=== PATIENT | male | born 1970 | race African-American/Black ===

== ENCOUNTER 2020-03-06 19:50 | Inpatient (IN) | payer BC ==
[2020-03-06 20:20] LABS: Absolute Lymphocytes (CBC) 1.5 K/uL (0.7-4.9); Hematocrit 42.9 % (39.6-49.0); Lymphocytes % 19.8 % (15.3-44.8); MPV 10.1 fL (7.6-11.3); RBC Red Blood Cell Count 4.92 M/uL (4.33-5.43)
[2020-03-06 20:23] LABS: Protime INR 1.06
--- NOTE | 2020-03-06 20:27 | RAD REPORT ---
EXAM DESCRIPTION: CT - Ct Stroke Brain Wo Cont - 03/06/2020 8:12 pm CLINICAL HISTORY: Slurred speech. Right-sided weakness COMPARISON: 2012 TECHNIQUE: Computed axial tomography of the head was obtained. All CT scans are performed using dose optimization technique as appropriate and may include automated exposure control or mA/KV adjustment according to patient size. FINDINGS: An intracranial bleed is not seen . The ventricles are normal in caliber. No extra-axial fluid collection is noted. 12 millimeters low-density area has developed within the left thalamus. Mild low-density areas within periventricular, deep and subcortical white matter likely ischemic longoria ges secondary to small vessel disease Fluid within the sinuses/ mastoids is not seen. IMPRESSION: 12 millimeter low-density area within the left thalamus consistent with an infarct. It i s more likely to be acute then chronic. Rickey of the emergency room was notified at 8:11 p.m. March 06, 2020
--- NOTE | 2020-03-06 20:29 | RAD REPORT ---
EXAM DESCRIPTION: Sam Single View03/06/2020 8:19 pm CLINICAL HISTORY: CVA COMPARISON: 2012 FINDINGS: The lungs appear clear of acute infiltrate. The heart is borderline enlarged IMPRESSION: No acute abnormalities displayed
[2020-03-06] MEDS ORDERED: ASPIRIN 81 MG CHEWABLE TABLET ONE (20:30)
[2020-03-06] MEDS ORDERED: CLOPIDOGREL 75 MG TABLET ONE (20:30)
[2020-03-06] MEDS ORDERED: FOLIC ACID 5 MG/ML VIAL ONE (20:31)
[2020-03-06] MEDS ORDERED: LABETALOL 20 MG/4ML SYRINGE IV ONE (20:39)
[2020-03-06] MEDS ORDERED: KCL 20 MEQ/100 mL IVPB 20 MEQ/100 ML BAG IV ONE (20:54)
[2020-03-06] MEDS ORDERED: NA CHLORIDE 0.9% 250 ML ONE (20:54)
--- NOTE | 2020-03-06 20:56 | ER ---
Nurse's Notes [facility] Name: Oliverio Masterson Age: 49 yrs Sex: Male : 1970 Arrival Date: 03/06/2020 Time: 19:52 Bed 6 Private MD: Diagnosis: Cerebral infarction;Weakness;Slurred speech Presentation: 03/06 20:04 Chief complaint: Spouse and/or significant other states: I WAS TALKING TO HIM ON THE rv PHONE AT 6AM AND HE SOUNDED DIFFERENT. HE WAS ALSO LEANING ON HIS RIGHT SIDE WITH BLURRING ON VISION ON THE RIGHT EYE. Coronavirus screen: Client denies travel out of the [place] in the last 14 days. Ebola Screen: No symptoms or risks identified at this time. An acute neurological deficit is present. The charge nurse has been notified. The patient has been moved to a treatment area. Initial Sepsis Screen: Does the patient meet any 2 criteria? No. Patient's initial sepsis screen is negative. Does the patient have a suspected source of infection? No. Patient's initial sepsis screen is negative. Risk Assessment: Do you want to hurt yourself or someone else? Patient reports no desire to harm self or others. Onset of symptoms was March 06, 2020 at 06:00. 20:04 Method Of Arrival: Wheelchair rv 20:04 Acuity: MURPHY 2 rv Triage Assessment: 20:11 The onset of the patients symptoms was March 06, 2020 at 06:00. rv 20:15 General: Appears comfortable. Neuro: Reports blurred vision numbness weakness. rv Stroke Activation: Symptom onset > 6 hours Physician: Stroke Attending; Name: ; Notified At: ; Arrived At: Physician: Chief Stroke Resident; Name: ; Notified At: ; Arrived At: Physician: Stroke Resident; Name: ; Notified At: ; Arrived At: Physician: ED Attending; Name: ; Notified At: ; Arrived At: Physician: ED Resident; Name: ; Notified At: ; Arrived At: Historical: - Allergies: 20:08 No Known Allergies; rv - PMHx: 20:08 Hypertension; High Cholesterol; rv - PSHx: 20:08 Hernia repair; rv - Immunization history:: Adult Immunizations up to date. - Social history:: Smoking status: Patient/guardian denies using tobacco, the patient reports quitting approximately 10 years ago. - Family history:: not pertinent. - Hospitalizations: : No recent hospitalization is reported. Screenin:10 Abuse screen: Denies threats or abuse. Denies injuries from another. Nutritional rv screening: No deficits noted. Tuberculosis screening: No symptoms or risk factors identified. Fall Risk None identified. Assessment: 20:10 The patient has not been NPO before screening. The patient is alert, and able to follow rv commands. The patient exhibits slurred or garbled speech. The patient is exhibiting difficulty speaking. The patient is exhibiting difficulty understanding words. The patient is able to swallow own secretions with no drooling or need for suction. Patient tolerated one teaspoon of water. No drooling, immediate coughing, gurgling, or clearing of the throat was noted. The patient tolerated 90mL of water. No drooling, immediate coughing, gurgling, or clearing of the throat was noted. The patient passed the bedside swallow screening. Oral medications may be given as ordered. Contact Physician for further diet orders. Provider notified of bedside swallow screening results: Jv Varghese MD. 20:10 VAN Scoring:. T-PA (Activase) Screening: Contraindications:. rv 20:35 General: Appears comfortable, Behavior is calm, cooperative. Pain: Denies pain. Neuro: rv Level of Consciousness is awake, alert, obeys commands, Oriented to person, place, time, situation. Cardiovascular: Rhythm is sinus rhythm. Respiratory: Airway is patent Respiratory effort is even, unlabored, Breath sounds are clear bilaterally. Derm: Skin is intact. 21:12 Reassessment: PATIENT COMPLAINED OF NAUSEA AND VOMITING AFTER THE CT SCAN. REFERRED TO rv DR VARGHESE. NEW ORDERS RECEIVED. GIVEN MEDS ORDERED. PATIENT AND FAMILY UPDATED BY DR VARGHESE AT BEDSIDE REGARDING PLAN OF CARE. PT FOR CT ANGIO. AWAITING DISPOSITION FOR TRANSFER OR ADMISSION. Vital Signs: 20:11 BP 184 / 123; Pulse 77; Resp 18; Temp 98.1; Pulse Ox 97% on R/A; Weight 108.86 kg; rv 20:26 Temp 97.9; ar5 20:36 BP 164 / 143; Pulse 62; Resp 18; Pulse Ox 97% on R/A; mg2 21:07 BP 171 / 110; Pulse 69; Resp 16; Pulse Ox 97% on R/A; rv 22:00 BP 170 / 113; Pulse 66; Resp 15; Pulse Ox 97% on R/A; rv 22:20 BP 167 / 109; Pulse 62; Resp 16; Pulse Ox 96% on R/A; rv Tonio Coma Score: 21:00 Eye Response: spontaneous(4). Verbal Response: oriented(5). Motor Response: obeys rv commands(6). Total: 15. 22:00 Eye Response: spontaneous(4). Verbal Response: oriented(5). Motor Response: obeys rv commands(6). Total: 15. NIH Stroke Scale Scores: 20:10 NIHSS Score: 5 rn 20:35 NIHSS Score: 6 rv ED Course: 19:52 Patient arrived in ED. mr 19:54 Jv Varghese MD is Attending Physician. rn 20:03 Jared Sarah RN is Primary Nurse. rv 20:07 Triage completed. rv 20:08 Arm band placed on right wrist. Patient placed in the treatment room, on a stretcher, rv Patient notified of wait time. 20:10 Patient has correct armband on for positive identification. Placed in gown. Bed in low rv position. Call light in reach. Side rails up X2. vehicle monitor technician on. Pulse ox on. NIBP on. 20:12 Ct Stroke Brain Wo Cont In Process Unspecified. EDMS 20:19 Stroke CXR 1 View In Process Unspecified. EDMS 20:25 Inserted saline lock: 20 gauge in left antecubital area, using aseptic technique. Blood mg2 collected. by RUDDY Bergman. 20:29 Initiated transfer at [facility] with Kasia. Stated that she would work on the case. tt3 20:30 No provider procedures requiring assistance completed. mg2 20:53 CT Head Angio In Process Unspecified. EDMS 20:53 CT Neck Angio In Process Unspecified. EDMS 20:58 Kasia called back to connect their neurologist with Dr. Varghese. tt3 21:31 Transfer cancelled with Kasia at [facility]. tt3 21:56 Tee Bonilla is Hospitalizing Provider. rn 22:20 IV is patent, with fluids infusing freely, with good blood return, Patient admitted, IV rv remains in place. Administered Medications: 20:29 Drug: PlaVIX 75 mg Route: PO; mg2 21:05 Follow up: Response: No adverse reaction rv 20:29 Drug: Labetalol 5 mg Route: IVP; Site: left antecubital; mg2 22:13 Follow up: Response: Blood pressure is elevated rv 20:30 Drug: Aspirin Chewable Tablet 324 mg Route: PO; mg2 21:05 Follow up: Response: No adverse reaction rv 20:30 Drug: foLIC Acid 1 mg Route: IVPB; Site: left antecubital; mg2 21:05 Follow up: IV Status: Completed infusion rv 21:00 Drug: Zofran (Ondansetron) 4 mg Route: IVP; Site: left antecubital; rv 22:13 Follow up: Response: No adverse reaction rv 21:05 Drug: Potassium Chloride 10 mEq Route: IV; Rate: calculated rate; Site: left rv antecubital; 22:13 Follow up: IV Status: Completed infusion; IV Intake: 50ml rv Point of Care Testing: Blood Glucose: 20:15 Blood Glucose: 90 mg/dL; rv Ranges: Intake: 22:13 IV: 50ml; Total: 50ml. rv Outcome: 20:54 ER care complete, transfer ordered by MD. rn 21:57 Decision to Hospitalize by Provider. rn 22:19 Admitted to Med/surg accompanied by tech, room 206, Other SBAR, EKG Report called to rv RILEY RN 22:19 Condition: stable 22:19 Instructed on the need for admit. 22:43 Patient left the ED. rv NIH Stroke Scale - NIH Stroke Score Date: 03/06/2020 Time: 20:10 Total Score = 5 1a. Level of Consciousness (LOC) - 0(Alert) 1b. Level of Consciousness (LOC) (Year \T\ Age) - 0(Both) 1c. LOC Commands (Open \T\ Closes Eyes/Weight Recorder) - 0(Both) 2. Best Gaze (Lateral Gaze Paresis) - 0(Normal) 3. Visual Field Loss - 1(Partial hemianopia) 4. Facial Palsy - 1(Minor Paralysis) 5a. Left Arm: Motor (10-second hold) - 0(No drift) 5b. Right Arm: Motor (10-second hold) - 1(Drift) 6a. Left Leg: Motor (5-second hold - always test supine) - 0(No drift) 6b. Right Leg: Motor (5-second hold - always test supine) - 1(Drift) 7. Limb Ataxia (finger/nose \T\ heel/jeronimo - test with eyes open) - 0(Absent) 8. Sensory Loss (pinprick arms/legs/face) - 0(Normal) 9. Best Language: Aphasia (description/naming/reading) - 0(No aphasia) 10. Dysarthria (speech clarity - read or repeat words) - 1(Mild to Moderate) 11. Extinction and Inattention (visual/tactile/auditory/spatial/personal) - 0(No abnormality) Initials: ruddy NIH Stroke Scale - NIH Stroke Score Date: 03/06/2020 Time: 20:35 Total Score = 6 1a. Level of Consciousness (LOC) - 0(Alert) 1b. Level of Consciousness (LOC) (Year \T\ Age) - 0(Both) 1c. LOC Commands (Open \T\ Closes Eyes/Weight Recorder) - 0(Both) 2. Best Gaze (Lateral Gaze Paresis) - 1(Partial gaze palsy) 3. Visual Field Loss - 1(Partial hemianopia) 4. Facial Palsy - 1(Minor Paralysis) 5a. Left Arm: Motor (10-second hold) - 0(No drift) 5b. Right Arm: Motor (10-second hold) - 0(No drift) 6a. Left Leg: Motor (5-second hold - always test supine) - 0(No drift) 6b. Right Leg: Motor (5-second hold - always test supine) - 0(No drift) 7. Limb Ataxia (finger/nose \T\ heel/jeronimo - test with eyes open) - 1(Present in one limb) 8. Sensory Loss (pinprick arms/legs/face) - 0(Normal) 9. Best Language: Aphasia (description/naming/reading) - 1(Mild to moderate aphasia) 10. Dysarthria (speech clarity - read or repeat words) - 1(Mild to Moderate) 11. Extinction and Inattention (visual/tactile/auditory/spatial/personal) - 0(No abnormality) Initials: rv Signatures: Dispatcher [employer] [facility] MorAlanna Roman, MD MD rn Gardose, Michele, RN RN mg2 Vicente, Ronaldo, RN RN rv Robles, Autumn ar5 Deven, Dakota [email or web address] Corrections: (The following items were deleted from the chart) 20:41 20:10 Patient has been NPO before screening. The patient is alert, and able to rv follow commands. The patient exhibits slurred or garbled speech. The patient is exhibiting difficulty speaking. The patient is exhibiting difficulty understanding words. rv 20:41 20:11 The patient failed the bedside swallow screening. The patient will be rv kept NPO until cleared by Speech Therapy or Physician. Provider notified of bedside swallow screening results: Jv Varghese MD rv 20:41 20:11 Patient tolerated one teaspoon of water. No drooling, immediate coughing, rv gurgling, or clearing of the throat was noted. mg2 22:19 20:11 BP 184 / 123; Pulse 77bpm; Resp 18bpm; Pulse Ox 97% RA; mg2 rv
--- NOTE | 2020-03-06 20:56 | EDPHYS ---
Physician Documentation [facility] Name: Oliverio Masterson Age: 49 yrs Sex: Male : 1970 Arrival Date: 03/06/2020 Time: 19:52 Bed 6 Private MD: ED Physician Jv Varghese HPI: 03/06 19:59 This 49 yrs old Black Male presents to ER via Unassigned with complaints of Slurred rn Speech. 19:59 Onset: The symptoms/episode began/occurred this morning. Severity of symptoms: At their rn worst the symptoms were moderate in the emergency department the symptoms are unchanged. Current symptoms:. The patient has not experienced similar symptoms in the past. Last known normal last night before bed. Woke up at 0600 today with right blurred vision, right sided weakness, and slurred speech. No head trauma. Family reports symptoms slowly worsening since onset. Never happened before. States takes baby aspirin but not sure if took today. . Historical: - Allergies: 20:08 No Known Allergies; rv - PMHx: 20:08 Hypertension; High Cholesterol; rv - PSHx: 20:08 Hernia repair; rv - Immunization history:: Adult Immunizations up to date. - Social history:: Smoking status: Patient/guardian denies using tobacco, the patient reports quitting approximately 10 years ago. - Family history:: not pertinent. - Hospitalizations: : No recent hospitalization is reported. ROS: 19:59 Constitutional: Negative for fever, chills, and weight loss, Eyes: + blurred vision rn right eye Neck: Negative for injury, pain, and swelling, Cardiovascular: Negative for chest pain, palpitations, and edema, Respiratory: Negative for shortness of breath, cough, wheezing, and pleuritic chest pain, Abdomen/GI: Negative for abdominal pain, nausea, vomiting, diarrhea, and constipation, MS/Extremity: Negative for injury and deformity, Skin: Negative for injury, rash, and discoloration, Neuro: + slurred speech, + right sided weakness and numbness Exam: 20:16 Constitutional: This is a well developed, well nourished patient who is awake, alert, rn and in no acute distress. Head/Face: Normocephalic, atraumatic. Eyes: Pupils equal round and reactive to light, extra-ocular motions intact. Lids and lashes normal. Conjunctiva and sclera are non-icteric and not injected. Cornea within normal limits. Periorbital areas with no swelling, redness, or edema. + left eye with lateral hemianopsia Cardiovascular: Regular rate and rhythm. No pulse deficits. Respiratory: Speaking full sentences. No increased work of breathing, no retractions or nasal flaring. Abdomen/GI: Soft, non-tender MS/ Extremity: Pulses equal, no cyanosis. Neuro: Awake and alert, GCS 15, oriented to person, place, time, and situation. + right upper and lower facial droop, + right arm and leg 4/5 strength with drift, difficulty ambulating even 2 steps to bed. No paresthesia or sensory changes. + mild dysarthria. Vital Signs: 20:11 BP 184 / 123; Pulse 77; Resp 18; Temp 98.1; Pulse Ox 97% on R/A; Weight 108.86 kg; rv 20:26 Temp 97.9; ar5 20:36 BP 164 / 143; Pulse 62; Resp 18; Pulse Ox 97% on R/A; mg2 21:07 BP 171 / 110; Pulse 69; Resp 16; Pulse Ox 97% on R/A; rv 22:00 BP 170 / 113; Pulse 66; Resp 15; Pulse Ox 97% on R/A; rv 22:20 BP 167 / 109; Pulse 62; Resp 16; Pulse Ox 96% on R/A; rv NIH Stroke Scale Scores: 20:10 NIHSS Score: 5 rn 20:35 NIHSS Score: 6 rv Pinole Coma Score: 21:00 Eye Response: spontaneous(4). Verbal Response: oriented(5). Motor Response: obeys rv commands(6). Total: 15. 22:00 Eye Response: spontaneous(4). Verbal Response: oriented(5). Motor Response: obeys rv commands(6). Total: 15. MDM: 19:54 Patient medically screened. rn 20:25 ED course: Consulted with Damaris Platt, recommends transfer to [facility] to get CT rn perfusion for possible intraarterial treatment. . 20:52 Data reviewed: vital signs, nurses notes, lab test result(s), radiologic studies, CT rn scan, and as a result, I will admit patient. Counseling: I had a detailed discussion with the patient and/or guardian regarding: the historical points, exam findings, and any diagnostic results supporting the discharge/admit diagnosis, lab results, radiology results, the need to transfer to another facility, for higher level of care. Response to treatment: There is no appreciated change of the patient's symptoms at this time. 20:54 ED course: NO TPA indicated due to outside of window, last known normal last night.. rn 21:03 ED course: Consulted with Dr. Shelby, states does not expect intervention and likely small rn vessel occlusion, states believes patient can stay here, will call Dr. Platt back and discuss. . 03/06 20:14 Order name: Basic Metabolic Panel rn 03/06 20:14 Order name: CBC with Diff; Complete Time: 20:22 rn 03/06 20:14 Order name: Protime (+inr); Complete Time: 20:32 rn 03/06 20:14 Order name: Ptt, Activated; Complete Time: 20:32 rn 03/06 20:22 Order name: Glucose, Ancillary Testing; Complete Time: 20:32 EDMS 03/06 20:33 Order name: COVID-19 rn 03/06 20:11 Order name: Ct Stroke Brain Wo Cont; Complete Time: 20:32 EDMS 03/06 20:14 Order name: CT Head Angio; Complete Time: 21:29 rn 03/06 20:14 Order name: CT Neck Angio; Complete Time: 21:29 rn 03/06 20:14 Order name: Stroke CXR 1 View; Complete Time: 20:32 rn 03/06 22:22 Order name: UDS bb 03/06 20:14 Order name: EKG; Complete Time: 20:15 rn 03/06 20:14 Order name: Accucheck; Complete Time: 20:24 rn 03/06 20:14 Order name: Cardiac monitoring; Complete Time: 20:24 rn 03/06 20:14 Order name: EKG - Nurse/Tech; Complete Time: 20:24 rn 03/06 20:14 Order name: IV Saline Lock; Complete Time: 20:24 rn 03/06 20:14 Order name: Labs collected and sent; Complete Time: 20:24 rn 03/06 20:14 Order name: NPO; Complete Time: 20:24 rn 03/06 20:14 Order name: O2 Per Protocol; Complete Time: 20:24 rn 03/06 20:14 Order name: O2 Sat Monitoring; Complete Time: 20:24 rn 03/06 20:14 Order name: Stroke Swallow Screen; Complete Time: 20:30 rn 03/06 21:58 Order name: CONS Physician Consult EDMS Administered Medications: 20:29 Drug: PlaVIX 75 mg Route: PO; mg2 21:05 Follow up: Response: No adverse reaction rv 20:29 Drug: Labetalol 5 mg Route: IVP; Site: left antecubital; mg2 22:13 Follow up: Response: Blood pressure is elevated rv 20:30 Drug: Aspirin Chewable Tablet 324 mg Route: PO; mg2 21:05 Follow up: Response: No adverse reaction rv 20:30 Drug: foLIC Acid 1 mg Route: IVPB; Site: left antecubital; mg2 21:05 Follow up: IV Status: Completed infusion rv 21:00 Drug: Zofran (Ondansetron) 4 mg Route: IVP; Site: left antecubital; rv 22:13 Follow up: Response: No adverse reaction rv 21:05 Drug: Potassium Chloride 10 mEq Route: IV; Rate: calculated rate; Site: left rv antecubital; 22:13 Follow up: IV Status: Completed infusion; IV Intake: 50ml rv Point of Care Testing: Blood Glucose: 20:15 Blood Glucose: 90 mg/dL; rv Ranges: Critical Glucose Levels:Adult <50 mg/dl or >400 mg/dl <40 mg/dl or >180 mg/dl Disposition: 03/06/20 21:57 Hospitalization ordered by Tee Bonilla for Inpatient Admission. Preliminary diagnosis are Cerebral infarction, Weakness, Slurred speech. - Bed requested for Telemetry/MedSurg (Inpatient). - Status is Inpatient Admission. rv - Condition is Stable. - Problem is new. - Symptoms are unchanged. NIH Stroke Scale - NIH Stroke Score Date: 03/06/2020 Time: 20:10 Total Score = 5 1a. Level of Consciousness (LOC) - 0(Alert) 1b. Level of Consciousness (LOC) (Year \T\ Age) - 0(Both) 1c. LOC Commands (Open \T\ Closes Eyes/Control Room Technician) - 0(Both) 2. Best Gaze (Lateral Gaze Paresis) - 0(Normal) 3. Visual Field Loss - 1(Partial hemianopia) 4. Facial Palsy - 1(Minor Paralysis) 5a. Left Arm: Motor (10-second hold) - 0(No drift) 5b. Right Arm: Motor (10-second hold) - 1(Drift) 6a. Left Leg: Motor (5-second hold - always test supine) - 0(No drift) 6b. Right Leg: Motor (5-second hold - always test supine) - 1(Drift) 7. Limb Ataxia (finger/nose \T\ heel/jeronimo - test with eyes open) - 0(Absent) 8. Sensory Loss (pinprick arms/legs/face) - 0(Normal) 9. Best Language: Aphasia (description/naming/reading) - 0(No aphasia) 10. Dysarthria (speech clarity - read or repeat words) - 1(Mild to Moderate) 11. Extinction and Inattention (visual/tactile/auditory/spatial/personal) - 0(No abnormality) Initials: valdemar NIH Stroke Scale - NIH Stroke Score Date: 03/06/2020 Time: 20:35 Total Score = 6 1a. Level of Consciousness (LOC) - 0(Alert) 1b. Level of Consciousness (LOC) (Year \T\ Age) - 0(Both) 1c. LOC Commands (Open \T\ Closes Eyes/Control Room Technician) - 0(Both) 2. Best Gaze (Lateral Gaze Paresis) - 1(Partial gaze palsy) 3. Visual Field Loss - 1(Partial hemianopia) 4. Facial Palsy - 1(Minor Paralysis) 5a. Left Arm: Motor (10-second hold) - 0(No drift) 5b. Right Arm: Motor (10-second hold) - 0(No drift) 6a. Left Leg: Motor (5-second hold - always test supine) - 0(No drift) 6b. Right Leg: Motor (5-second hold - always test supine) - 0(No drift) 7. Limb Ataxia (finger/nose \T\ heel/jeronimo - test with eyes open) - 1(Present in one limb) 8. Sensory Loss (pinprick arms/legs/face) - 0(Normal) 9. Best Language: Aphasia (description/naming/reading) - 1(Mild to moderate aphasia) 10. Dysarthria (speech clarity - read or repeat words) - 1(Mild to Moderate) 11. Extinction and Inattention (visual/tactile/auditory/spatial/personal) - 0(No abnormality) Initials: brunilda Signatures: Dispatcher [employer] EDCT Jv Varghese MD MD rn Lasagna, Tonya, RN RN tl1 Yaya Saunders, RN RN mg2 Jared Sarah RN RN rv Corrections: (The following items were deleted from the chart) 20:17 20:15 CT-STROKE BRAIN W/O CONTRAST+CT.RAD.BRZ ordered. [facility] EDCT 20:34 20:16 Constitutional: This is a well developed, well nourished patient who is rn awake, alert, and in no acute distress. Head/Face: Normocephalic, atraumatic. Eyes: Pupils equal round and reactive to light, extra-ocular motions intact. Lids and lashes normal. Conjunctiva and sclera are non-icteric and not injected. Cornea within normal limits. Periorbital areas with no swelling, redness, or edema. Cardiovascular: Regular rate and rhythm. No pulse deficits. Respiratory: Speaking full sentences. No increased work of breathing, no retractions or nasal flaring. Abdomen/GI: Soft, non-tender MS/ Extremity: Pulses equal, no cyanosis. Neuro: Awake and alert, GCS 15, oriented to person, place, time, and situation. + right upper and lower facial droop, + right arm and leg 4/5 strength with drift, difficulty ambulating even 2 steps to bed. No paresthesia or sensory changes. + mild dysarthria. rn 21:56 20:54 03/06/2020 20:54 Transfer ordered to [facility]. Diagnosis is Dysarthria following cerebral infarction; Acute left thalamic stroke; Weakness. Reason for transfer: Higher level of care. Accepting physician is . Condition is Stable. Problem is new. Symptoms are unchanged. rn 22:13 21:57 Hospitalization Ordered by Tee Bonilla for Inpatient Admission. tl1 Preliminary diagnosis is Cerebral infarction; Weakness; Slurred speech. Bed requested for Telemetry/MedSurg (Inpatient). Status is Inpatient Admission. Condition is Stable. Problem is new. Symptoms are unchanged. rn 22:43 22:13 03/06/2020 21:57 Hospitalization Ordered by Tee Bonilla for Inpatient rv Admission. Preliminary diagnosis is Cerebral infarction; Weakness; Slurred speech. Bed requested for Telemetry/MedSurg (Inpatient). Status is Inpatient Admission. Condition is Stable. Problem is new. Symptoms are unchanged. tl1
[2020-03-06] MEDS ORDERED: ONDANSETRON 4 MG/2 ML VIAL ONE (21:13)
--- NOTE | 2020-03-06 21:14 | RAD REPORT ---
EXAM DESCRIPTION: Shaanyovani Angio03/06/2020 8:53 pm CLINICAL HISTORY: cva COMPARISON: None TECHNIQUE: 50 cc Isovue 370 was administered intravenously. 3D MIP reconstruction performed All CT scans are performed using dose optimization technique as appropriate and may include automated exposure control or mA/KV adjustment according to patient size. FINDINGS: Common carotid, internal and external carotid arteries bilaterally are normal caliber wit hout stenosis. Distal internal carotid arteries bilaterally are very tortuous. The vertebral arteries are codominant without an abnormality. IMPRESSION: No acute abnormality displayed NASCET criteria used. Mild 0-49% stenosis Moderate 50-69% stenosis Severe 70-99% stenosis
--- NOTE | 2020-03-06 21:23 | RAD REPORT ---
EXAM DESCRIPTION: CTHead angio03/06/2020 8:53 pm CLINICAL HISTORY: cva COMPARISON: None TECHNIQUE: CT angiogram of the head was obtained. 3D MIPS reconstruction performed. All CT scans are performed using dose optimization technique as appropriate and may include automated exposure control or mA/KV adjustment according to patient size. FINDINGS: The basilar, internal carotid, anterior cerebral, middle cerebral and posterior cerebral a rteries are normal caliber. An aneurysm is not seen. A significant stenosis is not noted. IMPRESSION: Unremarkable CT angiogram head.
[2020-03-06] MEDS ORDERED: NA CHLORIDE 0.9% 500 ML ONE (21:38)
--- NOTE | 2020-03-06 22:25 | P.HP ---
Certification for Inpatient Patient admitted to: Inpatient With expected LOS: >2 Midnights Patient will require the following post-hospital care: None Practitioner: I am a practitioner with admitting privileges, knowledge of patient current condition, hospital course, and medical plan of care. Services: Services provided to patient in accordance with Admission requirements found in Title 42 Section 412.3 of the Code of Federal Regulations <Radha Hancockshua - Last Filed: 03/06/20 22:20> Patient History Date of Service: 03/06/20 Primary Care Provider: Dr. Saucedo Reason for admission: Acute CVA History of Present Illness: This is a 49-year-old male with a history of hypertension high cholesterol that family states still has persistently high blood pressure. Went to bed last night feeling okay and woke up at 6:00 a.m. today noticing that he had a right blurry vision, right-sided weakness, slurred speech. Patient came in this evening for further evaluation after significant other called his brother. Patient was assessed in the emergency room and found to have symptoms consistent with acute CVA. This was confirmed with CT non contrast showing 12 mm infarction in the left thalamic region. Family stated that he possibly had a stroke several years ago as well. Patient currently alert and oriented to person, place and event but with persistent slurred speech and aphasia. Home medications list reviewed: Yes - Past Medical/Surgical History Has patient received pneumonia vaccine in the past: No Diabetic: No -: HTN -: Hyperlipidemia -: CKD -: Hernia Repair - Social History Smoking Status: Never smoker Smoking therapy provided: No Alcohol use: Yes CD- Drugs: Yes Caffeine use: Yes Place of Residence: Home <Rickey Hancock - Last Filed: 03/06/20 22:20> Date of Service: 03/07/20 - Family History Mother -: Hypertension Father Notes: from colon cancer last year Son -: Diabetes Notes: diabetes type 1. 7 years old <alta reed - Last Filed: 03/07/20 07:25> Allergies No Known Allergies Allergy (Verified 03/06/20 23:01) Home Medications: Aspirin 325 mg PO DAILY #30 tablet 09/22/12 Carvedilol [Coreg] 1 tab PO BID 03/06/20 Furosemide 1 tab PO SEECOM 03/06/20 Olmesartan Medoxomil [Benicar] 1 tab PO DAILY 03/06/20 Potassium Chloride [Klor-Con 10] 20 meq PO DAILY 03/06/20 Review of Systems General: As per HPI Eyes: Vision Change ENT: Unremarkable Respiratory: Unremarkable Cardiovascular: Unremarkable Gastrointestinal: Unremarkable Genitourinary: Unremarkable Musculoskeletal: Unremarkable Integumentary: Unremarkable Neurological: As per HPI Lymphatics: Unremarkable <Rickey Hancock - Last Filed: 03/06/20 22:20> Physical Examination - Vital Signs Temperature: 97.9 F Blood Pressure: 184/123 Pulse: 77 Respirations: 18 Pulse Ox (%): 97 - Physical Exam General: Alert, In no apparent distress, Oriented x3, Cooperative HEENT: Normocephalic, PERRLA, Mucous membr. moist/pink, EOMI Neck: Supple, 2+ carotid pulse no bruit, JVD not distended, No Thyromegaly, No LAD Respiratory: Clear to auscultation bilaterally, Normal air movement Cardiovascular: No edema, Normal pulses, Regular rate/rhythm, Normal S1 S2, No gallops, No rubs, No murmurs, Edema (1+) Capillary refill: <2 Seconds Gastrointestinal: Normal bowel sounds, Soft and benign, Non-distended, No ascites, No tenderness, No masses, No rebound, No guarding Musculoskeletal: No clubbing, No swelling, No contractures, No erythema, No tenderness, No warmth Integumentary: No rashes, No breakdown, No significant lesion, No tenderness/swelling, No erythema, No warmth, No cyanosis Neurological: Sensation intact, Cranial nerves 3-12 intact, Normal reflexes 2+, Normal affect, Abnormal speech, Abnormal strength Lymphatics: No axilla or inguinal lymphadenopathy - Studies Laboratory Data (last 24 hrs) 03/06/20 20:08: PT 12.5, INR 1.06, APTT 30.4 03/06/20 20:08: WBC 7.6, Hgb 14.5, Hct 42.9, Plt Count 179 03/06/20 20:08: Sodium 144, Potassium 3.0 L, BUN 19 H, Creatinine 1.55 H, Glucose 94 <Rickey Hancock - Last Filed: 03/06/20 22:20> - Studies Laboratory Data (last 24 hrs) 03/06/20 20:08: PT 12.5, INR 1.06, APTT 30.4 03/06/20 20:08: WBC 7.6, Hgb 14.5, Hct 42.9, Plt Count 179 03/06/20 20:08: Sodium 144, Potassium 3.0 L, BUN 19 H, Creatinine 1.55 H, Glucose 94 <aroldoalta villarreal - Last Filed: 03/07/20 07:25> Assessment and Plan - Problems (Diagnosis) (1) Hypertension Current Visit: Yes Status: Chronic Plan: Patient with persistently high blood pressure and that is controlled currently on carvedilol, olmesartan/medoxomil. Patient still with moderate hypertension. At this time. Will monitor blood pressure but to continue to keep patient permissive hypertensive secondary to acute ischemic CVA. Will adjust blood pressure if greater than 220/120. Patient likely needs medication reconciliation and change in medications as he is not on optimal therapy at this time in my opinion. Qualifiers: Hypertension type: essential hypertension Qualified Code(s): I10 - Essential (primary) hypertension (2) Chronic kidney disease (CKD) Current Visit: Yes Status: Chronic Plan: Patient appears to have stage IIIA CK ED present. Will consult nephrology to confirm this. Likely secondary to uncontrolled hypertension. Patient will need nephrology followup an medication reconciliation to further compromise his renal function and to ensure that he has a renal protective agents. Will monitor renal function throughout the next couple days via labs to ensure that it is not decrease. Qualifiers: Chronic kidney disease stage: stage 3 (moderate) Chronic kidney disease stage 3 subtype: stage 3a (GFR 45-59) Qualified Code(s): N18.31 - Chronic kidney disease, stage 3a (3) Hyperlipidemia Current Visit: Yes Status: Chronic Plan: Patient with known hyperlipidemia. Lipid panel has been drawn to see what his cholesterol levels are. Will continue atorvastatin but has increased it from 20 mg to 40 mg to see if patient will tolerate that. Patient may need to be on high-dose high intensity statin given the acute CVA. Qualifiers: Hyperlipidemia type: unspecified Qualified Code(s): E78.5 - Hyperlipidemia, unspecified (4) Cerebral infarction Current Visit: Yes Status: Acute Plan: Patient with new onset presentation of acute ischemic infarction of the left thalamic region. 12 mm in diameter. Patient will have MRI with echocardiogram completed tomorrow. CTA of the head and neck did not show any large vessel occlusion or atherosclerotic changes within the carotids. Likely at this time the stroke was from small vessel ischemic changes secondary to uncontrolled hypertension. Neurology has been consulted for confirmation of this and for further care. Patient has been put on aspirin, Plavix, folic acid for the time being and will remain progressively hypertensive for the next 24-48 hr. Will reassess neurologic examination in the mean time to ensure the patient does not acutely decompensate. Patient remained NPO and swallow study will be done with speech therapy. Patient will have increase in his high intensity statin therapy. We will continue to monitor and see if aphasia and dysarthria improves over the next day or so. Will get speech therapy involved as needed as well. Qualifiers: Cerebral infarction mechanism: unspecified mechanism Qualified Code(s): I63.9 - Cerebral infarction, unspecified (5) Hypokalemia due to excessive renal loss of potassium Current Visit: Yes Status: Acute Plan: Patient hypokalemic secondary to diuretics. Potassium will be monitored along with his other electrolytes and replace as needed. Will consider taking the patient off of loop diuretic and put on a thiazide diuretic as this may optimize his renal function and lessen his hypokalemia. Discharge Plan: Home Plan to discharge in: 48 Hours - Advance Directives Does patient have a Living Will: No Does patient have a Durable POA for Healthcare: No - Code Status/Comfort Care Code Status Assessed: Yes Code Status: Full Code Critical Care: No Time Spent Managing Pts Care (In Minutes): 60 <Rickey Hancock - Last Filed: 03/06/20 22:20> Physician Review: Patient Assessed, Agree with Above Assessment and Plan Physician Review Additional Text: Obtain MRI of the brain. Permissive hypertension Swallow eval. Check HBA1c. Speech therapy. <alta reed - Last Filed: 03/07/20 07:25>
[2020-03-06] MEDS ORDERED: ONDANSETRON 4 MG/2 ML VIAL IV PRN (22:40)
[2020-03-06] MEDS ORDERED: NA CHLORIDE 0.9% 1,000 ML IV SCH (22:40)
[2020-03-06 22:47] LABS: Barbiturates NEGATIVE (NEGATIVE); Benzodiazepines NEGATIVE (NEGATIVE); Cocaine NEGATIVE (NEGATIVE); METHAMPHETAM NEGATIVE (NEGATIVE); Methadone NEGATIVE (NEGATIVE); Opiates NEGATIVE (NEGATIVE); Phencyclidine NEGATIVE (NEGATIVE); THC Cannibis NEGATIVE (NEGATIVE)
[2020-03-06 23:19] VITALS: BMI 37.7
[2020-03-06] MEDS ORDERED: INFLUENZA VACCINE (for 3y+) 0.5 ML DOSE IMVAC ONE (23:30)
[2020-03-06 23:58] LABS: T4,Total 11.2 ug/dL (4.5-12.1); Thyroid Stimulating Hormone 0.343 uIU/mL (0.360-3.740)
[2020-03-07] MEDS ORDERED: D5 0.9 NS 1,000 ML IV SCH (01:00)
[2020-03-07] MEDS: KCL 20 MEQ/100 mL IVPB 20 MEQ/100 ML BAG IV SCH ×3 (02:06→05:35)
[2020-03-07 04:32] LABS: Absolute Lymphocytes (CBC) 1.1 K/uL (0.7-4.9); MPV 10.3 fL (7.6-11.3); RBC Red Blood Cell Count 4.63 M/uL (4.33-5.43)
[2020-03-07 04:57] LABS: Phosphorus 3.1 mg/dL (2.5-4.9)
[2020-03-07 04:58] LABS: Potassium 2.9 mmol/L (3.5-5.1)
--- NOTE | 2020-03-07 07:26 | EKG ---
Test Date: 2020-03-06 Test Time: 20:19:43 [employer]rotechnics Press Tender: MARY KAY MEASUREMENT RESULTS: Intervals: Rate: 65 WY: 158 QRSD: 102 QT: 440 QTc: 457 [place]: P: 57 WY: 158 QRS: 40 T: -5 INTERPRETIVE STATEMENTS: Normal sinus rhythm Cannot rule out Inferior infarct, age undetermined Cannot rule out Anterior infarct, age undetermined Abnormal ECG Compared to ECG 06/15/2017 14:16:23 Ventricular premature complex(es) no longer present Prolonged QT interval no longer present Myocardial infarct finding still present Electronically Signed On 03-07-20 07:24:44 CDT by Michael Huerta
[2020-03-07] MEDS: CLOPIDOGREL 75 MG TABLET PO SCH (08:36)
[2020-03-07] MEDS: ASPIRIN EC 81 MG TAB PO SCH (08:37)
[2020-03-07] MEDS: ENOXAPARIN 40 MG/0.4 ML SQ SCH (08:38)
[2020-03-07] MEDS: FOLIC ACID 1 MG in NA CHLORIDE 0.9% 50 ML IV SCH (08:41)
[2020-03-07] MEDS ORDERED: POTASSIUM CL 40 MEQ in NA CHLORIDE 0.9% 500 ML IV SCH ×2 (10:00→14:00)
--- NOTE | 2020-03-07 10:56 | P.PN ---
Subjective Date of Service: 03/07/20 Primary Care Provider: Dr. Saucedo Chief Complaint: Acute CVA Patient states his speech is improving. Now he is able to articulate better. Blood pressure is a moderately elevated. Physical Examination - Vital Signs Temperature: 97.0 F Blood Pressure: 175/120 Pulse: 68 Respirations: 20 Pulse Ox (%): 94 - Physical Exam General: Alert, In no apparent distress HEENT: PERRLA, Mucous membr. moist/pink, EOMI Neck: Supple, JVD not distended Respiratory: Clear to auscultation bilaterally, Normal air movement Cardiovascular: No edema, Regular rate/rhythm, Normal S1 S2 Gastrointestinal: Normal bowel sounds, Soft and benign, No tenderness Musculoskeletal: No swelling, No erythema Integumentary: No rashes, No tenderness/swelling Neurological: Normal strength at 5/5 x4 extr, Cranial nerves 3-12 intact, Other (Slurred speech.) - Studies Laboratory Data (last 24 hrs) 03/06/20 20:08: PT 12.5, INR 1.06, APTT 30.4 03/06/20 20:08: WBC 7.6, Hgb 14.5, Hct 42.9, Plt Count 179 03/06/20 20:08: Sodium 144, Potassium 3.0 L, BUN 19 H, Creatinine 1.55 H, Glucose 94 Assessment And Plan - Current Problems (Diagnosis) (1) Acute CVA (cerebrovascular accident) Current Visit: Yes Status: Acute (2) Hypokalemia due to excessive renal loss of potassium Current Visit: Yes Status: Acute (3) Hyperlipidemia Current Visit: Yes Status: Chronic Qualifiers: Hyperlipidemia type: unspecified Qualified Code(s): E78.5 - Hyperlipidemia, unspecified (4) Hypertension Current Visit: Yes Status: Chronic Qualifiers: Hypertension type: essential hypertension Qualified Code(s): I10 - Essential (primary) hypertension (5) Acute renal failure Current Visit: Yes Status: Acute - Plan Patient neurologic symptoms improving. He is on aspirin and plavix. High-dose Lipitor. MRI of the brain and echo are pending. Patient to be seen by speech therapy. Do bedside swallow and deemed oral medications if patient passes bedside swallow test. Discussed his refractory hypertension and impressed upon him to have a sleep study done to rule out obstructive sleep apnea. Nephrology input appreciated. CAROLEE has improved. Physician Review: Patient Assessed, Agree with Above Assessment and Plan
[2020-03-07] MEDS ORDERED: POTASSIUM CL SA 10 MEQ TAB PO ONE (11:50)
--- NOTE | 2020-03-07 12:40 | CON ---
Date of Consultation: 03/07/2020 Reason For Consultation: Hypertension and hypokalemia. History Of Present Illness: This is a pleasant 49-year-old gentleman with significant past medical h istory of hypertension, has been diagnosed almost 6 years back, not controlled, CVA 6 years ago. Acc ording to him, it was in the presence of CBD intake, marijuana, the patient does not know any history of kidney disease. The patient apparently followed up with his primary care and placed on 2 blood p ressure medications, but it is still not controlled and also patient is known to have persistent hypo kalemia on supplement. The patient came to the hospital as by family that his blood pressure has bee n elevated and with slurred speech and right-sided weakness. Upon arrival to the hospital, the patie nt found to have infarction on the left thalamic region. The patient denied taking any illegal drugs . The patient was admitted to the hospital. Upon arrival to the hospital found to have severe hypok alemia down to the 3 and then after that down to 2.9. For that reason, we have been consulted. The patient denied any fevers, any chills. Denied taking any herbal medication. Past Medical History: Includes, 1.Hypertension. According to him, he has full workup when he had the stroke before 6 years ago and secondary hypertension was ruled out in [facility]. 2.CVA in the presence of drug use CBD. 3.Persistent hypokalemia. 4.Hyperlipidemia. Family History: Positive for hypertension. Past Surgical History: Includes hernia repair. Social History: Ex-drug use. Positive alcohol. Denies smoking. Allergies: NO KNOWN DRUGS ALLERGY. Home Medications: Include aspirin, carvedilol, Lasix, Olmesartan, and potassium. Review of Systems: Head and Neck: No red eye. No ear pain. Has headache. GI: Has nausea, no vomiting. : No polyuria, no dysuria, no hematuria. FLYING I INSTRUCTOR: Not applicable. Respiratory: No shortness of breath. Cardiovascular: No chest pain. Endocrine: No polydipsia. Skin: No rash. Neuro: Has slurred speech, has weakness on the right side. Musculoskeletal: Generalized fatigue. Skin: No increased pigmentation. No scarring. Physical Examination: Vital Signs: When I saw the patient, blood pressure 175/120, pulse of 68, afebrile. Chest: Clear to auscultation. Heart: S1, S2. Regular. Abdomen: Soft, nontender. Extremities: No ulcer, trace edema. Neuro: Weakness on the right side. Physical exam as above as. Laboratory Data: Sodium 144, potassium 3.2, bicarb 29, BUN 14, creatinine 1.1, GFR 79, calcium 8.1, phosphorus 3.1. TSH 0.3. Cortisol 5.2. Urine drug screen was negative. INR 1. Current Medications: Include, 1.Aspirin. 2.Plavix. 3.Lovenox. 4.Atorvastatin. 5.Folic acid. 6.Zofran. 7.IV fluid. Assessment And Plan: 1.Urgent hypertension given the diastolic is still elevated with the presence of stroke. I am going to move the patient to the ICU to start him on a drip for more control of blood pressure, and I ale g to send for full workup of secondary hypertension. Given the presence of hypokalemia, hyperaldo ne ed to be ruled out. I am going to send for plasma renin activity and aldosterone. We will send also for the rest of the hormonal including metanephrine, and I am going to send for urine electrolytes t o see if there is any salt wasting to support hyperaldo. 2.Hypokalemia with normal magnesium, again with the presence of hypertension, hyperaldo need to be r uled out. I am going to start supplement aggressively and we will follow up the patient. 3.Cerebrovascular accident. With the presence of hypertension, urgent hypertension need to be treat ed. I am going to go ahead and place the patient on a drip and move to ICU. 4.Hypercoagulopathy, workup will send. We will follow up with the primary. Discontinue IV fluid fo r the time being. ROSARIO/MARIA R Voice ID: [id number] Report ID: [id number]
--- NOTE | 2020-03-07 14:16 | ECHO ---
HEIGHT: 5 ft 11 in WEIGHT: 270 lb 6.4 oz DATE OF STUDY: 03/07/[address]: Rickey Hancock 2-DIMENSIONAL: YES M.MODE: YES DOPPLER: YES COLOR FLOW: YES TDS: PORTABLE: DEFINITY: BUBBLE STUDY: DIAGNOSIS: STROKE CARDIAC HISTORY: CATHERIZATION: NO SURGERY: NO PROSTHETIC VALVE: NO PACEMAKER: NO MEASUREMENTS (cm) DIASTOLIC (NORMALS) SYSTOLIC (NORMALS) IVSd 1.3 (0.6-1.2) LA Diam 3.7 (1.9-4.0) LVEF 50% LVIDd 5.3 (3.5-5.7) LVIDs 4.0 (2.0-3.5) %FS 26% LVPWd 1.3 (0.6-1.2) Ao Diam 3.1 (2.0-3.7) 2 DIMENSIONAL ASSESSMENT: RIGHT ATRIUM: NORMAL LEFT ATRIUM: NORMAL RIGHT VENTRICLE: NORMAL LEFT VENTRICLE: MILD LEFT VENTRICULAR HYPERTROPHY TRICUSPID VALVE: NORMAL MITRAL VALVE: NORMAL PULMONIC VALVE: NORMAL AORTIC VALVE: NORMAL PERICARDIAL EFFUSION: NONE AORTIC ROOT: NORMAL LEFT VENTRICULAR WALL MOTION: NORMAL DOPPLER/COLOR FLOW: NORMAL COMMENTS: NORMAL LEFT VENTRICULAR EJECTION FRACTION 55-60%. NORMAL WALL MOTION. TRACE MITRAL REGURGITATION. TRACE TRICUSPID REGURGITATION. TECHNOLOGIST: ROBETR SHEPHERD
--- NOTE | 2020-03-07 14:54 | RAD REPORT ---
EXAM DESCRIPTION: US - Renal Ultrasound-Complete - 03/07/2020 2:27 pm CLINICAL HISTORY: HTN Hypertension, flank pain COMPARISON: No comparisons FINDINGS: Both kidneys are normal in size, shape and echotexture. The right kidney measures 12.2 x 5.6 x 5.2 cm. No hydronephrosis, focal mass or perinephric fluid. The left kidney measures 13.3 x 6.4 x 5.5 cm.. No hydronephrosis. 5 cm area of fullness in mid-pole l eft kidney seen. The urinary bladder is incompletely distended without gross abnormality seen. IMPRESSION: 5 cm area of fullness is seen midpole left kidney. This may represent a normal variant c olumn of Fred or a mass. Recommend follow-up CT abdomen with contrast for further evaluation. Otherwise, negative study.
[2020-03-07 15:00] LABS: UR POTASSIUM 18.2 mmol/L (20-40)
[2020-03-07] MEDS ORDERED: Nicardipine in Saline, Iso-Osm 20 MG/200 ML IV.SOLN. IV PRN (15:04)
[2020-03-07] MEDS: NICARDIPINE HCL 25 MG in NA CHLORIDE 0.9% 240 ML IV PRN ×3 (15:35→23:55)
[2020-03-07 16:19] LABS: Urine Protein/Creatinine Ratio 0.67 ratio (<0.15)
[2020-03-07] MEDS ORDERED: LORazepam 2 MG/ML VIAL IV ONE (17:32)
[2020-03-07] MEDS ORDERED: INFLUENZA VACCINE (for 3y+) 0.5 ML DOSE IMVAC ONE (17:34)
[2020-03-07] MEDS ORDERED: ATORVASTATIN 20 MG TAB ONE (20:14)
--- NOTE | 2020-03-07 20:22 | RAD REPORT ---
EXAM DESCRIPTION: MRI - Brain W/Wo Cont - 03/07/2020 8:10 pm CLINICAL HISTORY: acute cva Headache, drowsiness, CVA symptomology COMPARISON: MRA Head Wo Cont dated 03/07/2020 TECHNIQUE: Multi-sequence, multiplanar MR imaging of the brain was performed with contrast. FINDINGS: No intracranial hemorrhage, hydrocephalus, or extra-axial fluid collection.Mild areas of T 2 and FLAIR hyperintensity are noted the periventricular and deep white matter. No edema or shift of midline structures. No intracranial mass. 7-8 mm area of restricted diffusion is seen in the left naeem lamus compatible with a small nonhemorrhagic acute CVA.. The midline structures are normally formed. Moderate polypoid mucosal thickening seen in the maxillar y antra and ethmoid air cells. Post-contrast images show no abnormal enhancement to suggest tumor or infection. IMPRESSION: 7 mm small acute nonhemorrhagic CVA noted left thalamus.
--- NOTE | 2020-03-07 20:24 | RAD REPORT ---
EXAM DESCRIPTION: MRI - MRA Head Wo Cont - 03/07/2020 8:09 pm CLINICAL HISTORY: acute CVA CVA COMPARISON: Head angio dated 03/06/2020 FINDINGS: 3D noncontrast [id number] MR angiography of the [place] was performed. No aneurysm, flow-limiting stenosis or vascular malformation is seen. Forward flow seen in codominant vertebral arteries. The visualized dural venous sinuses appear patent. IMPRESSION: No significant flow abnormality of the [place] is identified.
--- NOTE | 2020-03-07 20:26 | RAD REPORT ---
EXAM DESCRIPTION: MRI - MRA Neck W/Wo Cont - 03/07/2020 8:10 pm CLINICAL HISTORY: acute cva Headache, drowsiness, CVA symptomology COMPARISON: No comparisons FINDINGS: Contrast enhance 2D [id number] MR angiography of the neck vessels was performed. A left aortic arch is noted. Both common carotid arteries and subclavian arteries are widely patent. Both internal carotid arterie s are mildly tortuous without evidence of significant carotid stenosis. Vertebral arteries are codomi nant. IMPRESSION: No significant flow abnormality of the neck vessels identified.
[2020-03-07] MEDS: ATORVASTATIN 40 MG TAB PO SCH ×2 (20:41→20:44)
[2020-03-07] MEDS ORDERED: ATORVASTATIN 40 MG TAB ONE (20:43)
--- NOTE | 2020-03-07 20:49 | CON ---
Reason For Consultation: Consultation called because of stroke. History Of Present Illness: Mr. Masterson is a 49-year-old patient with uncontrolled hypertension, diabe gui mellitus, chronic stroke 7 years ago involving his left thalamus with right-sided weakness, numbn ess, had resolved completely per the patient, and now comes in with new symptoms of dysarthria, right face arm leg weakness with numbness, and difficulty getting thoughts together. At the time of his a rrival in [facility], his symptoms had been ongoing for more than 12 hours. His NIH Stroke Scale was 5. Initial recommendation was for him to be transferred to [place] for potential intra-art erial thrombolysis, plus CT perfusion can be done. However, after discussion, the stroke was felt to be small vessel disease stroke, therefore no intervention would be possible in [place]. As a result , the patient was admitted to [facility] for further care. He did have echocardiogram which showed a normal ejection fraction without any cardiac clots. The patient said that since hospitaliz ation and being treated with aspirin and receiving IV hydration, his symptoms have resolved, and he t hinks he is back to his normal strength and sensation in the face arm leg on the right. Past Medical History: As indicated. Allergies: NO KNOWN DRUG ALLERGIES. Past Surgical History: Hernia repair. Family History: Mother has hypertension. Dad of colon cancer. Son with diabetes. Home Medications: Aspirin 325 mg daily, Coreg twice daily, Lasix daily, Benicar daily, and potassium 20 mEq daily. Review of Systems: No recent fevers, chills, nausea, vomiting, myalgias, arthralgias, headaches, weight change, or rash. Social History: Denies smoking tobacco cigarettes. He uses alcohol regularly. In the past, he used Spice or K2 when his first stroke occurred 7 years ago. Also, uses caffeinated beverages. Physical Examination: Vital Signs: Blood pressure 147/95, pulse ranged from 83 to 92, respiratory rate 16 to 20, temperatu re 98.4. GENERAL: Mr. Masterson is resting in his hospital bed. He is in no acute distress. He had walked 500 f eet earlier with physical therapies. HEENT: He is normocephalic, atraumatic. Sclerae are anicteric. Oropharynx is pink and moist. Neck: Supple. Chest: Clear. Heart: Regular. Extremities: Show no edema, cyanosis, or clubbing. Neuro: Cranial nerve exam has no deficits on 2 through 12. His motor examination shows no weakness of upper and lower extremities with 5/5 strength bilaterally. Sensory exam intact to light touch, te mperature, pinprick bilaterally. Coordination intact in the upper and lower extremities and gait sli ght tendency to drift towards the right side. Laboratory Studies: Complete blood count with differential is normal. Coagulation panel is normal. Chemistries show glucose ranged from 88 to 122. Hemoglobin A1c 6.0. Potassium low, originally at a round 2.9, now 3.2 with correction. Sodium 144. His LDL cholesterol 116, HDL cholesterol 39. His c holesterol to HDL ratio of 4.46. TSH is low at 0.343, T4 is 11.2. Please note on admission, his cre atinine is 1.55; after hydration creatinine 1.19. Urinalysis shows protein to creatinine ratio is el evated to 0.67, and he has a renal mass being worked up. Random urine protein of 24, urine potassium is low and urine chloride elevated. His drug screen is negative and it should be noted that in 2013 , his RPR was reactive and FTA-ABS was reactive. Assessment: Mr. Masterson is a 49-year-old patient with multiple stroke risk factors including dyslipide son, hypertension, prior stroke, history of drug abuse. He has uncontrolled hypertension and renal m ass. He is awaiting brain MRI. Reports his symptoms have resolved, and by exam, no focal deficits, NIH 0. Mr. Masterson is a 49-year-old patient with possible transient ischemic attack, although CT scan finding does show the presence of a stroke in the thalamus, MRI of the brain is pending, and has multiple str maurizio risk factors. Plan: 1.Aspirin 81 mg daily. 2.Lipitor 80 mg at bedtime. 3.Plavix 75 mg daily. 4.Lovenox 40 mg subcutaneously daily. 5.Folate 1 mg daily. 6.Permissive hypertension at the time of possible acute stroke. 7.The patient was instructed in the course of hydration as dehydration appears to be a factor in his TIA versus stroke. LB/MODL Voice ID: [id number] Report ID: [id number]
[2020-03-07] MEDS ORDERED: ATORVASTATIN 40 MG TAB PO SCH (21:00)
[2020-03-08 05:24] LABS: Absolute Lymphocytes (CBC) 1.1 K/uL (0.7-4.9); Basophils % 0.6 % (0-1.3); Hematocrit 46.3 % (39.6-49.0); MPV 10.1 fL (7.6-11.3); RBC Red Blood Cell Count 5.29 M/uL (4.33-5.43)
[2020-03-08 05:47] LABS: Albumin 3.9 g/dL (3.4-5.0); BUN Blood Urea Nitrogen 9 mg/dL (7-18); Bicarbonate 28 mmol/L (21-32); Glucose Level 96 mg/dL (74-106); Phosphorus 2.5 mg/dL (2.5-4.9); Potassium 3.2 mmol/L (3.5-5.1); Sodium Level 143 mmol/L (136-145); Thyroid Stimulating Hormone 0.395 uIU/mL (0.360-3.740)
[2020-03-08] MEDS ORDERED: POTASSIUM CL SA 10 MEQ TAB PO ONE ×4 (06:08→15:34)
[2020-03-08] MEDS: POTASS/SODIUM PHOSPHATE 1 PKT POWD.PACK PO SCH ×3 (08:00→09:42)
[2020-03-08] MEDS: FOLIC ACID 1 MG in NA CHLORIDE 0.9% 50 ML IV SCH (09:00)
[2020-03-08] MEDS ORDERED: ENOXAPARIN 40 MG/0.4 ML SQ ONE (09:18)
[2020-03-08] MEDS ORDERED: ASPIRIN EC 81 MG TAB PO ONE (09:18)
[2020-03-08] MEDS ORDERED: CLOPIDOGREL 75 MG TABLET ONE (09:18)
[2020-03-08] MEDS ORDERED: FOLIC ACID 1 MG TABLET ONE (09:18)
[2020-03-08] MEDS: ENOXAPARIN 40 MG/0.4 ML SQ SCH (09:33)
[2020-03-08] MEDS: CLOPIDOGREL 75 MG TABLET PO SCH (09:33)
[2020-03-08] MEDS: ASPIRIN EC 81 MG TAB PO SCH (09:33)
[2020-03-08] MEDS: FOLIC ACID 1 MG TABLET PO SCH (10:09)
[2020-03-08 10:14] LABS: Rheumatoid Factor NEG (NEG)
[2020-03-08] MEDS ORDERED: AMLODIPINE 10 MG TAB ONE (10:36)
--- NOTE | 2020-03-08 11:38 | P.PN ---
Subjective Date of Service: 03/08/20 Primary Care Provider: Dr. Saucedo Chief Complaint: Acute CVA Subjective: Improving Subjective Pt with Hx of HTN , CVA , admitted with CVA , HTN urgency today feels better started on Lisniopril and amlodipine will order W/U for secondary HTN Physical exam general: AAOX3, NAD , obese Neck; Supple, No elevated JVD hear: RRR, normal S1,2 no murmur or rub Chest: CTAB, no rlaes or wheezes Abdomen: Soft , Nt Extremities No edema or ulcer A/p HTN urgency BP improved now started on Lisniopril and amlodipine Pt with HTn and Hypokalmeia , will order W/U for secondary HTN avoid NSAID CAROLEE resolved CVA cont ASA and plavix BP control Hypokalmeia replace prn need to R/U hyperaldostermism Lt renal mass W/U as an OP Pt with HTn and Hypokalmeia , will order W/U for secondary HTN Physical Examination - Vital Signs Temperature: 97.6 F Blood Pressure: 146/86 Pulse: 85 Respirations: 17 Pulse Ox (%): 93 - Studies Microbiology Data (last 24 hrs): 03/06/20 20:45 Nasopharnyx Coronavirus COVID-19 PCR - Final Assessment And Plan Physician Review: Patient Assessed, Agree with Above Assessment and Plan
--- NOTE | 2020-03-08 13:05 | P.PN ---
Subjective Date of Service: 03/08/20 Primary Care Provider: Dr. Saucedo Chief Complaint: Acute CVA Patient's speech is back to normal. He has no limb weakness. Blood pressure is a moderately elevated. Nicardipine drip is being weaned down. Physical Examination - Vital Signs Temperature: 97.6 F Blood Pressure: 156/99 Pulse: 94 Respirations: 20 Pulse Ox (%): 96 - Physical Exam General: Alert, In no apparent distress, Oriented x3 HEENT: Atraumatic, Mucous membr. moist/pink Neck: Supple, JVD not distended Respiratory: Clear to auscultation bilaterally, Normal air movement Cardiovascular: No edema, Regular rate/rhythm, Normal S1 S2 Gastrointestinal: Normal bowel sounds, Soft and benign, No tenderness Musculoskeletal: No swelling, No erythema Integumentary: No rashes, No tenderness/swelling Neurological: Normal speech, Normal strength at 5/5 x4 extr - Studies Microbiology Data (last 24 hrs): 03/06/20 20:45 Nasopharnyx Coronavirus COVID-19 PCR - Final Assessment And Plan - Current Problems (Diagnosis) (1) Acute CVA (cerebrovascular accident) Current Visit: Yes Status: Acute (2) Hypokalemia due to excessive renal loss of potassium Current Visit: Yes Status: Acute (3) Hyperlipidemia Current Visit: Yes Status: Chronic Qualifiers: Hyperlipidemia type: unspecified Qualified Code(s): E78.5 - Hyperlipidemia, unspecified (4) Hypertension Current Visit: Yes Status: Chronic Qualifiers: Hypertension type: essential hypertension Qualified Code(s): I10 - Essential (primary) hypertension (5) Acute renal failure Current Visit: Yes Status: Acute - Plan Continue aspirin and plavix. Lipitor 80 mg daily. MRI of the brain: Reviewed and reporting acute left thalamic infarct. No problem with swallowing. Discussed his refractory hypertension and impressed upon him to have a sleep study done to rule out obstructive sleep apnea. Nephrology input appreciated. Patient suspected to have hyperaldosteronism. Renal artery Doppler studies ordered to rule out renal artery stenosis. Further workup for hypoaldosteronism as an outpatient. Replete potassium as needed. Start amlodipine and lisinopril and weaned off nicardipine drip. Physician Review: Patient Assessed, Agree with Above Assessment and Plan
[2020-03-08] MEDS: AMLODIPINE 10 MG TAB PO SCH (13:15)
[2020-03-08] MEDS ORDERED: lisinopriL 20 MG TAB PO SCH (14:00)
[2020-03-08] MEDS: ATORVASTATIN 80 MG TAB PO SCH (20:02)
[2020-03-09 05:58] LABS: Albumin 3.5 g/dL (3.4-5.0); Phosphorus 3.4 mg/dL (2.5-4.9); Potassium 3.4 mmol/L (3.5-5.1)
[2020-03-09] MEDS ORDERED: POTASSIUM 25 MEQ EFFERV TAB PO ONE (06:09)
[2020-03-09] MEDS: CLOPIDOGREL 75 MG TABLET PO SCH (08:31)
[2020-03-09] MEDS: FOLIC ACID 1 MG TABLET PO SCH (08:31)
[2020-03-09] MEDS: ENOXAPARIN 40 MG/0.4 ML SQ SCH (08:31)
[2020-03-09] MEDS: AMLODIPINE 10 MG TAB PO SCH (08:31)
[2020-03-09] MEDS: ASPIRIN EC 81 MG TAB PO SCH (08:31)
[2020-03-09] MEDS ORDERED: AMLODIPINE 10 MG TAB PO SCH (09:00)
[2020-03-09] MEDS ORDERED: lisinopriL 20 MG TAB PO SCH (09:00)
--- NOTE | 2020-03-09 10:38 | P.PN ---
Subjective Date of Service: 03/09/20 Primary Care Provider: Dr. Saucedo Chief Complaint: Acute CVA Patient has no complain today. He has no limb weakness. Blood pressure is a moderately elevated. Nicardipine drip has been weaned off. Increase in serum creatinine noted. Physical Examination - Vital Signs Temperature: 97.1 F Blood Pressure: 157/97 Pulse: 80 Respirations: 18 Pulse Ox (%): 95 - Physical Exam General: In no apparent distress HEENT: PERRLA, Mucous membr. moist/pink, EOMI Neck: Supple, JVD not distended Respiratory: Clear to auscultation bilaterally, Normal air movement Cardiovascular: No edema, Regular rate/rhythm, Normal S1 S2 Gastrointestinal: Normal bowel sounds, Soft and benign, No tenderness Musculoskeletal: No swelling, No erythema Integumentary: No rashes Neurological: Normal affect (Stop), Other (Nonfocal) Assessment And Plan - Current Problems (Diagnosis) (1) Acute CVA (cerebrovascular accident) Current Visit: Yes Status: Acute (2) Hypokalemia due to excessive renal loss of potassium Current Visit: Yes Status: Acute (3) Hyperlipidemia Current Visit: Yes Status: Chronic Qualifiers: Hyperlipidemia type: unspecified Qualified Code(s): E78.5 - Hyperlipidemia, unspecified (4) Hypertension Current Visit: Yes Status: Chronic Qualifiers: Hypertension type: essential hypertension Qualified Code(s): I10 - Essential (primary) hypertension (5) Acute renal failure Current Visit: Yes Status: Acute - Plan Continue aspirin and plavix. Lipitor 80 mg daily. MRI of the brain: Reviewed and reporting acute left thalamic infarct. No problem with swallowing. Discussed his refractory hypertension and impressed upon him to have a sleep study done to rule out obstructive sleep apnea. Nephrology input appreciated. Patient suspected to have hyperaldosteronism. Renal artery Doppler studies ordered to rule out renal artery stenosis is pending. Further workup for hypoaldosteronism as an outpatient. Replete potassium as needed. Continue amlodipine. Will discuss choice of antihypertensives with nephrology given the rise in creatinine.
[2020-03-09] MEDS ORDERED: DOXAZOSIN 2 MG TAB PO SCH (12:01)
[2020-03-09] MEDS ORDERED: LABETALOL 20 MG/4ML SYRINGE IV PRN (12:07)
[2020-03-09] MEDS: SPIRONOLACTONE 25 MG TABLET PO SCH (12:31)
--- NOTE | 2020-03-09 15:41 | P.PN ---
Subjective Date of Service: 03/09/20 Primary Care Provider: Dr. Saucedo Chief Complaint: Acute CVA Subjective Pt with Hx of HTN , CVA , admitted with CVA , HTN urgency today BP is better controlled now Cr up to 1.4, will dc lisinopril and add aldactone Physical exam general: AAOX3, NAD , obese Neck; Supple, No elevated JVD hear: RRR, normal S1,2 no murmur or rub Chest: CTAB, no rlaes or wheezes Abdomen: Soft , Nt Extremities No edema or ulcer A/p HTN urgency BP improved now started on Lisniopril and amlodipine , lisniopirl dc as Cr was up to 1.4 will dc linsiopril and add aldactone Pt with HTn and Hypokalmeia , F/U W/U for secondary HTN F/U renal doppler avoid NSAID CAROLEE resolved CVA cont ASA and plavix BP control Hypokalmeia replace prn need to R/U hyperaldostermism will add aldactone Lt renal mass W/U as an OP Pt with HTn and Hypokalmeia , will order W/U for secondary HTN Physical Examination - Vital Signs Temperature: 97.7 F Blood Pressure: 158/105 Pulse: 87 Respirations: 18 Pulse Ox (%): 99 Assessment And Plan Physician Review: Patient Assessed, Agree with Above Assessment and Plan
--- NOTE | 2020-03-09 15:53 | RAD REPORT ---
EXAM DESCRIPTION: US - Abdomen Pelvis Scan US - 03/09/2020 2:00 pm CLINICAL HISTORY: High blood pressure HTN urgency , roll out renal artery stenosis COMPARISON: No comparisons FINDINGS: The bilateral kidneys are normal in size, the right measuring 11.4 x 5.7 x 5.3 cm and the left measuring 13.2 x 7.0 x 6.8 cm. Right proximal renal artery: 69 cm/second Right mid renal artery: 68 cm/second Right distal renal artery: 41 cm/second Right renal arcuate artery resistive index: 0.8 Right renal artery / aorta ratio: 1.7 Left proximal renal artery: 41 cm/second Left mid renal artery: 39 cm/second Left distal renal artery: 43 cm/second Left renal arcuate artery resistive index: 0.8 Left renal artery/aorta ratio: 1.1 IMPRESSION: No evidence of hemodynamically significant stenosis within the bilateral renal arteries.
[2020-03-09] MEDS: ATORVASTATIN 80 MG TAB PO SCH (20:01)
[2020-03-10 06:02] LABS: Magnesium 1.9 mg/dL (1.8-2.4); Phosphorus 3.8 mg/dL (2.5-4.9); Potassium 3.1 mmol/L (3.5-5.1)
[2020-03-10 06:04] LABS: Albumin 3.5 g/dL (3.4-5.0); Phosphorus 3.8 mg/dL (2.5-4.9); Potassium 3.1 mmol/L (3.5-5.1)
[2020-03-10] MEDS ORDERED: POTASSIUM 25 MEQ EFFERV TAB PO ONE (06:07)
[2020-03-10 08:51] VITALS: TEMP 98.6
[2020-03-10] MEDS: AMLODIPINE 10 MG TAB PO SCH (08:53)
[2020-03-10] MEDS: FOLIC ACID 1 MG TABLET PO SCH (08:53)
[2020-03-10] MEDS: SPIRONOLACTONE 25 MG TABLET PO SCH (08:53)
[2020-03-10] MEDS: ASPIRIN EC 81 MG TAB PO SCH (08:53)
[2020-03-10] MEDS: CLOPIDOGREL 75 MG TABLET PO SCH (08:53)
[2020-03-10] MEDS: ENOXAPARIN 40 MG/0.4 ML SQ SCH (08:54)
[2020-03-10] MEDS ORDERED: DOXAZOSIN 2 MG TAB PO SCH (09:00)
[2020-03-10 09:52] VITALS: O2SAT 98
[2020-03-10 10:12] VITALS: BP 168/106
--- NOTE | 2020-03-10 10:50 | P.PN ---
Subjective Date of Service: 03/10/20 Primary Care Provider: Dr. Saucedo Chief Complaint: Acute CVA Patient has no complain today. He has no limb weakness. Blood pressure is a moderately elevated. Serum creatinine trended down from yesterday. Physical Examination - Vital Signs Temperature: 98.6 F Blood Pressure: 168/106 Pulse: 80 Respirations: 16 Pulse Ox (%): 98 - Physical Exam General: Alert, In no apparent distress HEENT: Mucous membr. moist/pink Neck: Supple, JVD not distended Respiratory: Clear to auscultation bilaterally, Normal air movement Cardiovascular: Regular rate/rhythm, Normal S1 S2 Gastrointestinal: Normal bowel sounds, Soft and benign, No tenderness Musculoskeletal: No swelling, No erythema Integumentary: No rashes, No tenderness/swelling Neurological: Normal speech, Normal strength at 5/5 x4 extr Assessment And Plan - Current Problems (Diagnosis) (1) Acute CVA (cerebrovascular accident) Current Visit: Yes Status: Acute (2) Hypokalemia due to excessive renal loss of potassium Current Visit: Yes Status: Acute (3) Hyperlipidemia Current Visit: Yes Status: Chronic Qualifiers: Hyperlipidemia type: unspecified Qualified Code(s): E78.5 - Hyperlipidemia, unspecified (4) Hypertension Current Visit: Yes Status: Chronic Qualifiers: Hypertension type: essential hypertension Qualified Code(s): I10 - Essential (primary) hypertension (5) Acute renal failure Current Visit: Yes Status: Acute - Plan Neurologic symptoms resolved Continue aspirin and plavix. Lipitor 80 mg daily. MRI of the brain: Reviewed and reporting acute left thalamic infarct. Discussed his refractory hypertension and impressed upon him to have a sleep study done to rule out obstructive sleep apnea. Nephrology input appreciated. Patient suspected to have hyperaldosteronism. Renal artery Doppler studies: No renal artery stenosis. Further workup for hypoaldosteronism as an outpatient. Nephrology has ordered 24 urine protein Replete potassium as needed. Continue amlodipine. Added spironolactone and doxazosin. Nephrology is following. .
--- NOTE | 2020-03-10 12:30 | P.PN ---
Subjective Date of Service: 03/10/20 Primary Care Provider: Dr. Saucedo Chief Complaint: Acute CVA Subjective Pt with Hx of HTN , CVA , admitted with CVA , HTN urgency today BP is better controlled now cr improved after holding lisniopril will increase aldactone to bid can be discharged from nephrology point of view Will follow in nephrology clinic in 2-3 wks Physical exam general: AAOX3, NAD , obese Neck; Supple, No elevated JVD hear: RRR, normal S1,2 no murmur or rub Chest: CTAB, no rlaes or wheezes Abdomen: Soft , Nt Extremities No edema or ulcer A/p HTN urgency BP improved now started on Lisniopril and amlodipine , lisinopril dc as Cr was up to 1.4 will dc lisinopril and add aldactone Pt with HTn and Hypokalmeia , F/U W/U for secondary HTN renal doppler, No stenosis avoid NSAID CAROLEE resolved CVA cont ASA and plavix BP control Hypokalmeia replace prn need to R/U hyperaldostermism will increase aldactone Lt renal mass W/U as an OP Pt with HTn and Hypokalmeia , F/U renin/aldp ratio will send for serum metanephrine as an OP Physical Examination - Vital Signs Temperature: 98.6 F Blood Pressure: 168/106 Pulse: 80 Respirations: 16 Pulse Ox (%): 98 Assessment And Plan Physician Review: Patient Assessed, Agree with Above Assessment and Plan
--- NOTE | 2020-03-10 12:55 | P.DS ---
Admission Date: 03/06/20 Discharge Date: 03/10/20 Primary Care Provider: Dr. Saucedo Disposition: ROUTINE DISCHARGE Discharge Condition: FAIR Reason for Admission: Acute CVA Consultations: Neurology-Dr. Platt Renal. - Problems (1) Acute CVA (cerebrovascular accident) Current Visit: Yes Status: Acute (2) Hypokalemia due to excessive renal loss of potassium Current Visit: Yes Status: Acute (3) Hyperlipidemia Current Visit: Yes Status: Chronic Qualifiers: Hyperlipidemia type: unspecified Qualified Code(s): E78.5 - Hyperlipidemia, unspecified (4) Hypertension Current Visit: Yes Status: Chronic Qualifiers: Hypertension type: essential hypertension Qualified Code(s): I10 - Essential (primary) hypertension (5) Acute renal failure Current Visit: Yes Status: Acute (6) Renal mass Current Visit: Yes Status: Acute Brief History of Present Illness: 49-year-old man with a history of uncontrolled hypertension presented to the emergency department with a complaint of sudden onset of blurry vision and slurred speech. Patient waited for several hours before presenting to the emergency department. His symptoms suggested acute stroke. CT head done in the ED demonstrated left thalamic infarct. EKG was unremarkable. His blood pressure was significantly elevated. Patient was admitted for further stroke workup. Hospital Course: Patient admitted to the medical floor and started on aspirin and Plavix and Lipitor. MRI of the brain confirms left thalamic acute infarct. His neurologic symptoms which included blurred vision, diplopia slurred speech resolved within 48 hours. He had no trouble with swallowing. No limb weakness. His blood pressure was significantly elevated. He was started on amlodipine. Nephrology was consulted to assist with blood pressure management. The patient was initially placed on a lisinopril but noted increase in serum creatinine. Lisinopril was discontinued. Nephrology suspected patient may have hyperaldosteronism given the persistent hypokalemia and recommended Aldactone. Aldactone was titrated up to 25 mg b.i.d. Patient also reported significant history of poor sleep at night suggesting possible obstructive sleep apnea. It was impressed upon him to have his PCP arrange for sleep study to rule out sleep apnea. He will also follow with nephrology for further evaluation for hyperaldosteronism. Noted patient was on Coreg and an YURI inhibitor which were held during the hospital stay. He is likely to need a cocktail of antihypertensives given the refractory nature of his hypertension. He is also prescribed Doxazosin. He will follow with nephrology for further blood pressure management. Vital Signs/Physical Exam: Temp Pulse Resp BP Pulse Ox 98.6 F 80 16 168/106 H 98 03/10/20 12:30 03/10/20 12:30 03/10/20 12:30 03/10/20 12:30 03/10/20 12:30 General: Alert, In no apparent distress HEENT: Atraumatic, Normocephalic, Mucous membr. moist/pink Neck: JVD not distended Respiratory: Clear to auscultation bilaterally, Normal air movement Cardiovascular: No edema, Regular rate/rhythm, Normal S1 S2 Capillary refill: <2 Seconds Gastrointestinal: Normal bowel sounds, Soft and benign, Non-distended, No tenderness Musculoskeletal: No swelling, No erythema Integumentary: No rashes Neurological: Normal speech, Normal strength at 5/5 x4 extr Laboratory Data at Discharge: WBC 9.7 K/uL (4.3-10.9) D 03/08/20 05:02 Hgb 15.9 g/dL (13.6-17.9) 03/08/20 05:02 Hct 46.3 % (39.6-49.0) 03/08/20 05:02 Plt Count 212 K/uL (152-406) 03/08/20 05:02 PT 12.5 SECONDS (9.5-12.5) 03/06/20 20:08 INR 1.06 03/06/20 20:08 APTT 30.4 SECONDS (24.3-36.9) 03/06/20 20:08 Sodium 141 mmol/L (136-145) 03/10/20 05:30 Sodium 141 mmol/L (136-145) 03/10/20 05:30 Potassium 3.7 mmol/L (3.5-5.1) 03/10/20 12:04 BUN 16 mg/dL (7-18) 03/10/20 05:30 BUN 16 mg/dL (7-18) 03/10/20 05:30 Creatinine 1.23 mg/dL (0.55-1.3) 03/10/20 05:30 Creatinine 1.26 mg/dL (0.55-1.3) 03/10/20 05:30 Glucose 93 mg/dL (74-106) 03/10/20 05:30 Glucose 95 mg/dL (74-106) 03/10/20 05:30 Uric Acid 5.0 mg/dL (3.5-7.2) 03/08/20 05:02 Phosphorus 3.8 mg/dL (2.5-4.9) 03/10/20 05:30 Phosphorus 3.8 mg/dL (2.5-4.9) 03/10/20 05:30 Magnesium 1.9 mg/dL (1.8-2.4) 03/10/20 05:30 Triglycerides 94 mg/dL (<150) 03/07/20 03:54 Cholesterol 174 mg/dL (<200) 03/07/20 03:54 HDL Cholesterol 39 mg/dL (40-60) L 03/07/20 03:54 Cholesterol/HDL Ratio 4.46 03/07/20 03:54 Home Medications: Amlodipine [Norvasc*] 10 mg PO DAILY #30 tab 03/10/20 Aspirin [Aspirin EC 81 MG] 81 mg PO DAILY #30 tablet. 03/10/20 Atorvastatin Calcium [Lipitor] 80 mg PO BEDTIME #30 tab 03/10/20 Clopidogrel Bisulfate [Plavix*] 75 mg PO DAILY #30 tablet 03/10/20 Doxazosin [Cardura*] 2 mg PO DAILY #30 tab 03/10/20 Spironolactone [Aldactone] 25 mg PO BID 30 Days #60 tab 03/10/20 New Medications: Spironolactone [Aldactone] 25 mg PO BID 30 Days #60 tab Aspirin [Aspirin EC 81 MG] 81 mg PO DAILY #30 tablet. Doxazosin [Cardura*] 2 mg PO DAILY #30 tab Atorvastatin Calcium [Lipitor] 80 mg PO BEDTIME #30 tab Amlodipine [Norvasc*] 10 mg PO DAILY #30 tab Clopidogrel Bisulfate [Plavix*] 75 mg PO DAILY #30 tablet Diet: AHA Activity: Ad juliet Followup: NONE,NONE [Primary Care Provider] - 1 Week Moo Benson MD [ACTIVE - CAN ADMIT] - 1 Week Time spent managing pt's care (in minutes): 42
[2020-03-10] MEDS ORDERED: POTASSIUM CL SA 10 MEQ TAB PO ONE (14:00)
[2020-03-12 02:17] LABS: Anti-Cardiolipin IgA Antibody <11 APL (<=11)
[2020-03-12 12:25] LABS: Protein C Antigen 98 % (70-140)
== END 2020-03-10 15:50 | disposition home or self-care (01) | DRG 65 ==
LOC: ER 19:50 → 2ND 21:57 → ERHOLD 03-07 14:55 → 2ND 03-08 15:46
PROVIDERS: ADMIT Internal Medicine; ATTEND Internal Medicine
DX: I63.9 Cerebral infarction, unspecified (principal); G81.91 Hemiplegia, unspecified affecting right dominant side; N17.9 Acute kidney failure, unspecified; R47.81 Slurred speech; H53.8 Other visual disturbances; R40.2362 Coma scale, best motor response, obeys commands, at arrival to emergency department; R40.2142 Coma scale, eyes open, spontaneous, at arrival to emergency department; R40.2252 Coma scale, best verbal response, oriented, at arrival to emergency department; R29.705 NIHSS score 5; R47.01 Aphasia; E78.5 Hyperlipidemia, unspecified; I12.9 Hypertensive chronic kidney disease with stage 1 through stage 4 chronic kidney disease, or unspecified chronic kidney disease; N18.31 Chronic kidney disease, stage 3a; E11.22 Type 2 diabetes mellitus with diabetic chronic kidney disease; E87.6 Hypokalemia; E87.5 Hyperkalemia; G47.33 Obstructive sleep apnea (adult) (pediatric); E26.9 Hyperaldosteronism, unspecified; N28.89 Other specified disorders of kidney and ureter; I16.0 Hypertensive urgency; E66.9 Obesity, unspecified; Z68.37 Body mass index [BMI] 37.0-37.9, adult; Z79.82 Long term (current) use of aspirin; Z79.02 Long term (current) use of antithrombotics/antiplatelets; Z86.73 Personal history of transient ischemic attack (TIA), and cerebral infarction without residual deficits; Z79.899 Other long term (current) drug therapy; Z20.828 Contact with and (suspected) exposure to other viral communicable diseases; Z23 Encounter for immunization
CPT/HCPCS: 36415; 70450; 70496; 70498; 70544; 70549; 70553; 71045; 76770; 80048; 80061; 80069; 80307; 82088; 82435; 82533; 82570; 82947; 83036; 83735; 83835; 83935; 84100; 84132; 84156; 84244; 84300; 84436; 84443; 84550; 85025; 85301; 85302; 85305; 85306; 85610; 85730; 86038; 86147; 86160; 86225; 86430; 90471; 92610; 93005; 93306; 93975; 94760; 96365; 96367; 96375; 97112; 97116; 97161; 97530; 99285; A9577; J1650; J2405; J3480; J7030; J7040; J7042; J7050; Q2035; Q9967; U0002

== ENCOUNTER 2021-04-25 11:04 | Emergency (ER) | payer BC ==
[2021-04-25] MEDS ORDERED: ETOMIDATE 20 MG/10 ML VIAL IV ONE (11:05)
[2021-04-25] MEDS ORDERED: SUCCINYLCHOLINE 20 MG/ML (10 ML) IV ONE ×2 (11:05→11:40)
--- OUTSIDE RECORDS SUMMARY | 2021-04-25 11:06 | XMS REPORT | Continuity of Care Document ---
:[address] [facility] t Address [address] [place] [address] Care Team Providers Name Role Phone Michael TOURE Attending Clinician Lab, Fam Pob I Attending Clinician Unavailable MICHAEL Attending Clinician Unavailable Doctor Unassigned, Name Attending Clinician Unavailable Payers Payer Name Policy Type Policy Number Effective Date Expiration Date S ource Problems This patient has no known problems. Allergies, Adverse Reactions, Alerts Allergy Allergy Status Severity Reaction(s) Onset Inactive Treating Comm ents Source Name Type Date Date Clinician NO KNOWN Drug Active Univers ALLERGIE Class ity of S [facility] Social History Social Habit Start Date Stop Date Quantity Comments [facility] to [facility]2 [facility] Smoking Status Start Date Stop Date Source Unknown if ever smoked Universit y [facility] Medications This patient has no known medications. Procedures This patient has no known procedures. Encounters Start End Encounter Admission Attending Care Care Encounter Source Date/Time Date/Time Type Type Clinicians Facility Department ID 2021-02-18 2021-02-[address] [facility] [id number] [facility] 2021-02-12 2021-02-[address] [facility] [id number] [facility] 2021-01-14 2021-01-14 [facility] [id number] [facility] 2020-04-15 2020-04-15 Telephone Michael [facility] [id number] Univers 00:00:00 00:00:00 [facility] [id number] it [place] [facility] [place] [id number] Wolfgang as Professio [phone] [facility] [address] 2020-04-14 2020-04-14 Laboratory Lab, Adc Fam Pob I [facility] [id number] Univers 10:39:16 10:59:16 [id number] [facility] [place] [id number] Wolfgang as Professio [phone] [address] 2020-04-14 2020-04-14 Outpatient R MICHAEL [facility] [id number] Univers 10:00:00 10:00:00 EDVIN ity of [facility] 2020-04-14 2020-04-14 Letter Doctor KOKO [id number] Univers 00:00:00 00:00:00 (Out) Unassigned, GRAY [id number] [place] [facility] [id number] Wolfgang as [phone] [place] [address] [address] Results This patient has no known results.
[2021-04-25] MEDS ORDERED: RSI MEDICATION KIT IV ONE (11:16)
[2021-04-25] MEDS ORDERED: Nicardipine/NS 25 MG/250 ML KIT IV ONE ×2 (11:16→12:00)
[2021-04-25] MEDS ORDERED: LEVETIRACETAM 500 MG/5 ML VIAL IV ONE (11:26)
[2021-04-25] MEDS ORDERED: NA CHLORIDE 0.9% 100 ML ONE (11:26)
--- NOTE | 2021-04-25 11:26 | RAD REPORT ---
EXAM DESCRIPTION: CT - Ct Stroke Brain Wo Cont - 04/25/2021 11:17 am CLINICAL HISTORY: SYNCOPE COMPARISON: Head angio dated 03/06/2020; Ct Stroke Brain Wo Cont dated 03/06/2020 TECHNIQUE: All CT scans are performed using dose optimization technique as appropriate and may inclu de automated exposure control or mA/KV adjustment according to patient size. FINDINGS: Hemorrhage centered probably in the right basal ganglia measuring 3.6 cm with intraventric ular extension in both lateral ventricles as well as into third and approaching the fourth ventricle. No hydrocephalus. There is a midline shift at the site of the hemorrhage only. Background of chronic small vessel ischemic changes. Maxillary sinus opacification bilaterally. The calvarium is intact. IMPRESSION: Acute intracranial hemorrhage with intraventricular extension. This is likely the sequel a of a right basal ganglia hemorrhagic infarct. No hydrocephalus at this time. Generalized midline sh ift is not present. Discussed with Courtney by Brandi at 1115 on 04/25/21
[2021-04-25] MEDS ORDERED: propofoL 1,000 MG/100 ML VIAL IV ONE ×2 (11:44→13:00)
[2021-04-25 11:50] LABS: Absolute Lymphocytes (CBC) 1.8 K/uL (0.7-4.9); Basophils % 0.9 % (0-1.3); Hematocrit 46.7 % (39.6-49.0); Lymphocytes % 19.6 % (15.3-44.8); MPV 9.8 fL (7.6-11.3); RBC Red Blood Cell Count 5.22 M/uL (4.33-5.43)
[2021-04-25 12:05] LABS: Potassium 3.4 mmol/L (3.5-5.1)
--- NOTE | 2021-04-25 12:42 | RAD REPORT ---
EXAM DESCRIPTION: RAD - Chest Single View - 04/25/2021 12:17 pm CLINICAL HISTORY: fall, AMS COMPARISON: Chest Single View dated 03/06/2020; CHEST SINGLE VIEW dated 09/21/2012; CHEST SINGLE VIEW dated 09/20/2012 FINDINGS: Lines: Endotracheal tube at the aortic arch in satisfactory position. Lungs: No evidence of edema or pneumonia. Pleural: No significant pleural effusions or pneumothorax. Cardiac: The heart size is within normal limits. Bones: No acute fractures. Other: IMPRESSION: No acute cardiopulmonary disease.
[2021-04-25] MEDS ORDERED: ROCURONIUM 50 MG/5 ML VIAL IV ONE (12:51)
--- NOTE | 2021-04-25 12:58 | ER ---
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 ll1 Unresponsive, responds to painful only for EMS. SOB started upon arrival to ED. Coronavirus screen: Client denies travel out of the [place] in the last 14 days. Ebola Screen: Patient denies travel to an Ebola-affected area in the 21 days before illness onset. Risk Assessment: Do you want to hurt yourself or someone else? Patient reports no desire to harm self or others. Onset of symptoms was April 25, 2021. 11:16 Method Of Arrival: EMS: [place] [id number] 11:16 Acuity: MURPHY 2 ll1 13:18 An acute neurological deficit is present. The charge nurse has been notified. The ll1 patients blood glucose was checked before arriving to the hospital and was found to be normal. Initial Sepsis Screen: Does the patient meet any 2 criteria? No. Patient's initial sepsis screen is negative. Does the patient have a suspected source of infection? No. Patient's initial sepsis screen is negative. Triage Assessment: 11:36 The onset of the patients symptoms was less than three hours ago. General: Appears well ll1 nourished, Behavior is unresponsive. Pain: Denies pain. Neuro: Level of Consciousness is unresponsive, Oriented to none Metrology Specialist are Reports a syncopal episode unresponsive. 13:19 The onset of the patients symptoms was April 25, 2021 at 10:00. ll1 Stroke Activation: Symptom onset < 3 hours Physician: Stroke Attending; Name: ; Notified At: ; Arrived At: Physician: Chief Stroke Resident; Name: ; Notified At: ; Arrived At: Physician: Stroke Resident; Name: ; Notified At: ; Arrived At: Physician: ED Attending; Name: ; Notified At: ; Arrived At: Physician: ED Resident; Name: ; Notified At: ; Arrived At: Stroke Activation: Symptom onset < 3 hours Physician: Stroke Attending; Name: Remington; Notified At: 11:03; Arrived At: 11:10 Physician: Chief Stroke Resident; Name: ; Notified At: 11:03; Arrived At: Physician: Stroke Resident; Name: ; Notified At: 11:03; Arrived At: Physician: ED Attending; Name: ; Notified At: 11:03; Arrived At: Physician: ED Resident; Name: ; Notified At: 11:03; Arrived At: 11:16 called 1103 ll1 Historical: - Allergies: 11:15 No Known Allergies; ll1 - PMHx: 11:15 High Cholesterol; Hypertension; stroke; ll1 - Immunization history:: Client reports having NOT received the Covid vaccine. - Social history:: Smoking status: Patient denies any tobacco usage or history of. Screenin:36 Abuse screen: Denies threats or abuse. Nutritional screening: No deficits noted. ll1 Tuberculosis screening: No symptoms or risk factors identified. Fall Risk Fall in past 12 months (25 points). Secondary diagnosis (15 points) IV access (20 points). Ambulatory Aid- Crutches/Cane/Walker (15 pts). Gait- Total Mondragon Fall Scale indicates High Risk Score (45 or more points). Fall prevention measures have been instituted. Side Rails Up X 2 Frequent Obs/Assessments Occuring As available patient and family educated on Fall Prevention Program and Strategies. Assessment: 11:37 VAN Scoring: Arm Drift: Flaccid/no antigravity. The patient failed the bedside swallow ll1 screening. The patient will be kept NPO until cleared by Speech Therapy or Physician. Provider notified of bedside swallow screening results: Marko Macedo MD. T-PA (Activase) Screening: Indications: Contraindications: Intracranial hemorrhage and its risk factor and suspicion of subarachnoid bleed:. 11:39 The patient has not been NPO before screening. The patient is not alert and/or unable ll1 to follow commands. The patient is exhibiting difficulty speaking. The patient is exhibiting difficulty understanding words. The patient is unable to swallow own secretions without drooling or the need for suction. The patient did not tolerate one teaspoon of water. Drooling, immediate coughing, gurgling, or clearing of the throat was noted. 12:15 Reassessment: No changes from previously documented assessment. Patient and/or family ll1 updated on plan of care and expected duration. Pain level reassessed. 12:25 Reassessment: REPORT TO [facility], ETA <30 MIN. bp 13:15 Reassessment: No changes from previously documented assessment. Patient and/or family ll1 updated on plan of care and expected duration. Pain level reassessed. to [facility] via [facility]. C-collared for flight. Vital Signs: 11:16 BP 218 / 118; Pulse 92; Resp 32; Temp 96.5; Pulse Ox 99% ; Weight 113.4 kg; Pain 0/10; ll1 12:13 BP 151 / 103; Pulse 78; Resp 18; Pulse Ox 99% ; ll1 12:24 BP 137 / 86; Pulse 81; Resp 18; Pulse Ox 100% ; bp 13:14 BP 165 / 116; Pulse 83; Resp 20; Pulse Ox 99% ; ll1 NIH Stroke Scale Scores: 11:37 NIHSS Score: 37 ll1 ED Course: 11:07 Patient arrived in ED. as 11:15 Liliya Valentine, RN is Primary Nurse. ll1 11:15 Marko Macedo MD is Attending Physician. kdr 11:15 Arm band placed on Patient placed in an exam room, on a stretcher. ll1 11:15 Missed attempt(s): 22 gauge in left hand. Bleeding controlled, band aid applied, ll1 catheter tip intact. 11:16 CT Stroke Brain w/o Contrast In Process Unspecified. EDMS 11:16 initiated a transfer with Lavern from the [facility]. eb 11:20 Triage completed. ll1 11:38 Mari from [facility] called to connect the stroke team maintenance controller with Dr. Macedo/ eb Dr Macedo will have to call back intubation in progress. 11:39 Patient has correct armband on for positive identification. Call light in reach. Side ll1 rails up X 1. Side rails up X2. child monitor on. Pulse ox on. NIBP on. 11:40 Inserted saline lock: 20 gauge in left antecubital area, using aseptic technique. Blood ll1 collected. 11:42 7.5 ET tube, secured 23 at the teeth by Dr. Dasilva. Verification confirmed by ll1 auscultation and x-ray. Maintain EMS IV. Dressing intact. Good blood return noted. Site clean \T\ dry. Gauge \T\ site: 18 G R wrist. 11:45 called [facility] spoke with Tee who will page out the stroke eb doctor maintenance controller for us. 11:56 Womack cath inserted, using sterile technique, 16 Fr., by residential energy auditor, balloon inflated, to ll1 gravity drainage, urine specimen collected. 11:58 called [facility] again and spoke with Telma who will repage the eb stroke doctor maintenance controller. 12:00 Inserted saline lock: 18 gauge in right antecubital area, using aseptic technique. ll1 12:04 connected the Stroke doctor maintenance controller for [facility] with Dr. Macedo for eb patient transfer consultation. 12:14 administrative approval given by Teresa Hassan Rn/ patient has been accepted to [facility]/ Dr. Casey French has accepted the patient in transfer/ report to be called to [phone]. 12:17 Stroke CXR 1 View In Process Unspecified. EDMS 13:18 No provider procedures requiring assistance completed. Patient transferred, IV remains ll1 in place. Administered Medications: 11:10 Drug: Keppra (levETIRAcetam) 1000 mg Route: IV; Rate: calculated rate; Site: right ll1 antecubital; 13:15 Follow up: Response: No adverse reaction; IV Status: Completed infusion; IV Intake: ll1 100ml 11:35 Drug: Succinylcholine 100 mg Route: IVP; Site: right forearm; ll1 11:35 Drug: Etomidate 20 mg Route: IVP; Site: right forearm; ll1 13:20 Follow up: Response: No adverse reaction ll1 11:40 Drug: Succinylcholine 100 mg Route: IVP; Site: right forearm; ll1 13:15 Follow up: Response: No adverse reaction ll1 13:15 Follow up: Response: No adverse reaction ll1 11:50 Drug: Propofol 5 mcg/kg/min {Note: up to 30 mcg/kg/min.} Route: IV; Rate: calculated ll1 rate; Site: left antecubital; 13:20 Follow up: Response: No adverse reaction; IV Status: Infusion continued upon transfer; ll1 IV Intake: 30ml 12:03 Drug: Cardene (niCARdipine) 5 mcg/kg/min Route: IV; Rate: calculated rate; Site: right ll1 antecubital; 13:20 Follow up: Response: No adverse reaction; IV Status: Infusion continued upon transfer; 1 IV Intake: 10ml Point of Care Testin:19 218 VALVE PIPE IRRIGATOR ll1 Ranges: Intake: 13:15 IV: 100ml; Total: 100ml. ll1 13:20 IV: 10ml; Total: 110ml. ll1 13:20 IV: 30ml; Total: 140ml. ll1 Outcome: 12:58 ER care complete, transfer ordered by MD. kdr 13:19 Transferred by helicopter to [facility], Transfer form completed. X-rays sent [facility] w/ patient. Note: Report given to Elsi Hook RN at [place] 13:19 critical 13:21 Patient left the ED. ll1 NIH Stroke Scale - NIH Stroke Score Date: 04/25/2021 Time: 11:37 Total Score = 37 1a. Level of Consciousness (LOC) - 3(Unresponsive) 1b. Level of Consciousness (LOC) (Month \T\ Age) - 2(Neither) 1c. LOC Commands (Open \T\ Closes Eyes/Bench Grinder) - 2(Neither) 2. Best Gaze (Lateral Gaze Paresis) - 1(Partial gaze palsy) 3. Visual Field Loss - 2(Complete hemianopia) 4. Facial Palsy - 2(Partial paralysis) 5a. Left Arm: Motor (10-second hold) - 4(No movement) 5b. Right Arm: Motor (10-second hold) - 4(No movement) 6a. Left Leg: Motor (5-second hold - always test supine) - 4(No movement) 6b. Right Leg: Motor (5-second hold - always test supine) - 4(No movement) 7. Limb Ataxia (finger/nose \T\ heel/jeronimo - test with eyes open) - 0(Absent) 8. Sensory Loss (pinprick arms/legs/face) - 2(Severe to total loss) 9. Best Language: Aphasia (description/naming/reading) - 3(Mute, global aphasia) 10. Dysarthria (speech clarity - read or repeat words) - 2(Severe) 11. Extinction and Inattention (visual/tactile/auditory/spatial/personal) - 2(Profound) Initials: ll1 Signatures: Dispatcher [employer] Marko Jamil MD MD kdr Martinez, Amelia as Peltier, Brian, RN RN Shavonne Arboleda Lynsay, RN RN ll1 Corrections: (The following items were deleted from the chart) 12:38 11:50 Propofol 5 mcg/kg/min IV at calculated rate in left antecubital ll1 ll1
--- NOTE | 2021-04-25 12:59 | EDPHYS ---
Physician Documentation [facility] Name: Oliverio Masterson Age: 50 yrs Sex: Male : 1970 Arrival Date: 04/25/2021 Time: 11:07 Bed 6 Private MD: ED Physician Marko Macedo HPI: 04/25 13:00 This 50 yrs old Black Male presents to ER via EMS with complaints of S/S of Possible kdr Stroke. 13:00 The patient's problem is reported as altered mental status, confused, decreased kdr responsiveness, obtunded. Onset: The symptoms/episode began/occurred suddenly, just prior to arrival, at 10:30. Duration: The episode is continuous, the symptoms became persistent. Context: Patient was in the bathroom taking care of himself and on the telephone. His significant other reports that she heard a loud noise and when she went to the bathroom he was on the floor and not making sense. Since the patient had had a stroke previously, she recognized his potential symptoms and situation. EMS was called and brought the patient to the ED without further deterioration.. The symptoms are alleviated by nothing. The symptoms are aggravated by nothing. Associated signs and symptoms: The patient has no apparent associated signs or symptoms. Severity of symptoms: At their worst the symptoms were incapacitating in the emergency department the symptoms are unchanged. Patient's baseline: Neuro: alert and fully oriented, Motor: no deficits, Ambulation: walks without assistance. The patient has experienced similar episodes in the past, several times, Last time was a year ago this last February so approximately 14 months previously. The patient has not recently seen a physician. Historical: - Allergies: 11:15 No Known Allergies; ll1 - PMHx: 11:15 High Cholesterol; Hypertension; stroke; ll1 - Immunization history:: Client reports having NOT received the Covid vaccine. - Social history:: Smoking status: Patient denies any tobacco usage or history of. ROS: 13:00 Constitutional: Negative for fever, chills, and weight loss, Eyes: Negative for injury, kdr pain, redness, and discharge, patient has slight disconjugate gaze 13:00 Unable to obtain ROS due to altered mental status, obtunded state, patient's speech is incomprehensible. Exam: 13:00 Radiologist reports: Dr. Paz: Right basal ganglia infarct with hemorrhage and extension kdr into the ventricular system 13:00 Neck: Trachea midline, no thyromegaly or masses palpated, and no cervical lymphadenopathy. Supple, full range of motion without nuchal rigidity, or vertebral point tenderness. No Meningismus. Chest/axilla: Normal chest wall appearance and motion. Nontender with no deformity. No lesions are appreciated. Cardiovascular: Regular rate and rhythm with a normal S1 and S2. No gallops, murmurs, or rubs. Normal PMI, no JVD. No pulse deficits. Respiratory: Lungs have equal breath sounds bilaterally, clear to auscultation and percussion. No rales, rhonchi or wheezes noted. No increased work of breathing, no retractions or nasal flaring. Abdomen/GI: Soft, non-tender, with normal bowel sounds. No distension or tympany. No guarding or rebound. No evidence of tenderness throughout. Back: No spinal tenderness. No costovertebral tenderness. Full range of motion. Skin: Warm, dry with normal turgor. Normal color with no rashes, no lesions, and no evidence of cellulitis. 13:00 Neuro: Orientation: unable to test, Mentation: inappropriate for stated age, Patient is moving all extremities but is not able to follow commands. Vital Signs: 11:16 BP 218 / 118; Pulse 92; Resp 32; Temp 96.5; Pulse Ox 99% ; Weight 113.4 kg; Pain 0/10; ll1 12:13 BP 151 / 103; Pulse 78; Resp 18; Pulse Ox 99% ; ll1 12:24 BP 137 / 86; Pulse 81; Resp 18; Pulse Ox 100% ; bp 13:14 BP 165 / 116; Pulse 83; Resp 20; Pulse Ox 99% ; ll1 NIH Stroke Scale Scores: 11:37 NIHSS Score: 37 ll1 Procedures: 12:56 Intubation: Intubated orally using [place] scope with 7.5 mm ETT. I was unable to pass kdr the tube with the glide scope. We paged anesthesia and Dr. Dasilva responded. He was able to pass the ET tube. Please see his note for further details. Ventilated with Ambu bag. ventilator. Tube secured with ETT hare Placement verified by CO2 detector with (+) color change, auscultating bilateral breath sounds, O2 saturation after procedure was 99 %. Patient tolerated well. MDM: 12:56 Data reviewed: vital signs, nurses notes. Counseling: I had a detailed discussion with kdr the patient and/or guardian regarding: the historical points, exam findings, and any diagnostic results supporting the discharge/admit diagnosis, lab results, radiology results, the need to transfer to another facility. 12:58 Patient medically screened. kdr 04/25 11:16 Order name: Basic Metabolic Panel; Complete Time: 12:09 kdr 04/25 11:16 Order name: CBC with Diff; Complete Time: 12:04 kdr 04/25 11:14 Order name: CT Stroke Brain w/o Contrast; Complete Time: 12:04 eb 04/25 11:16 Order name: Protime (+inr); Complete Time: 12:04 kdr 04/25 11:16 Order name: Ptt, Activated; Complete Time: 12:04 kdr 04/25 11:16 Order name: Stroke CXR 1 View; Complete Time: 16:10 kdr 04/25 11:16 Order name: EKG; Complete Time: 11:17 kdr 04/25 11:16 Order name: Accucheck; Complete Time: 11:21 kdr 04/25 11:16 Order name: Cardiac monitoring; Complete Time: 11:21 kdr 04/25 11:16 Order name: EKG - Nurse/Tech; Complete Time: 11:21 kdr 04/25 11:16 Order name: IV Saline Lock; Complete Time: 11:20 kdr 04/25 11:16 Order name: Labs collected and sent; Complete Time: 11:20 kdr 04/25 11:16 Order name: NPO; Complete Time: 11:20 kdr 04/25 11:16 Order name: O2 Per Protocol; Complete Time: 11:20 kdr 04/25 11:16 Order name: O2 Sat Monitoring; Complete Time: 11:20 kdr Administered Medications: 11:10 Drug: Keppra (levETIRAcetam) 1000 mg Route: IV; Rate: calculated rate; Site: right ll1 antecubital; 13:15 Follow up: Response: No adverse reaction; IV Status: Completed infusion; IV Intake: ll1 100ml 11:35 Drug: Succinylcholine 100 mg Route: IVP; Site: right forearm; ll1 11:35 Drug: Etomidate 20 mg Route: IVP; Site: right forearm; ll1 13:20 Follow up: Response: No adverse reaction ll1 11:40 Drug: Succinylcholine 100 mg Route: IVP; Site: right forearm; ll1 13:15 Follow up: Response: No adverse reaction ll1 13:15 Follow up: Response: No adverse reaction ll1 11:50 Drug: Propofol 5 mcg/kg/min {Note: up to 30 mcg/kg/min.} Route: IV; Rate: calculated ll1 rate; Site: left antecubital; 13:20 Follow up: Response: No adverse reaction; IV Status: Infusion continued upon transfer; ll1 IV Intake: 30ml 12:03 Drug: Cardene (niCARdipine) 5 mcg/kg/min Route: IV; Rate: calculated rate; Site: right ll1 antecubital; 13:20 Follow up: Response: No adverse reaction; IV Status: Infusion continued upon transfer; ll1 IV Intake: 10ml Point of Care Testin:19 218 MEDIATOR ll1 Ranges: Critical Glucose Levels:Adult <50 mg/dl or >400 mg/dl <40 mg/dl or >180 mg/dl Disposition Summary: 04/25/21 12:58 Transfer Ordered Transfer Location: [facility] kdr Reason: Higher level of care kdr Condition: Critical kdr Problem: new kdr Symptoms: are unchanged kdr Accepting Physician: Dodie at [facility] [facility] (04/25/21 13:21) ll1 Diagnosis - Right basal ganglia hemorrhagic infarct. With extension into the ventricular systemkdr - Altered mental status, unspecified kdr Discharge Instructions: - Discharge Summary Sheet eb Forms: - Medication Reconciliation Form eb - SBAR form eb NIH Stroke Scale - NIH Stroke Score Date: 04/25/2021 Time: 11:37 Total Score = 37 1a. Level of Consciousness (LOC) - 3(Unresponsive) 1b. Level of Consciousness (LOC) (Month \T\ Age) - 2(Neither) 1c. LOC Commands (Open \T\ Closes Eyes/Crisis Therapist) - 2(Neither) 2. Best Gaze (Lateral Gaze Paresis) - 1(Partial gaze palsy) 3. Visual Field Loss - 2(Complete hemianopia) 4. Facial Palsy - 2(Partial paralysis) 5a. Left Arm: Motor (10-second hold) - 4(No movement) 5b. Right Arm: Motor (10-second hold) - 4(No movement) 6a. Left Leg: Motor (5-second hold - always test supine) - 4(No movement) 6b. Right Leg: Motor (5-second hold - always test supine) - 4(No movement) 7. Limb Ataxia (finger/nose \T\ heel/jeronimo - test with eyes open) - 0(Absent) 8. Sensory Loss (pinprick arms/legs/face) - 2(Severe to total loss) 9. Best Language: Aphasia (description/naming/reading) - 3(Mute, global aphasia) 10. Dysarthria (speech clarity - read or repeat words) - 2(Severe) 11. Extinction and Inattention (visual/tactile/auditory/spatial/personal) - 2(Profound) Initials: ll1 Signatures: Dispatcher [employer] EDMS Marko Macedo MD MD kdr Liliya Valentine RN RN ll1 Corrections: (The following items were deleted from the chart) 12:36 11:16 Stroke Swallow Screen ordered. kdr ll1 13:21 12:58 [facility] [facility] kdr ll1
[2021-04-25 13:40] VITALS: TEMP 96.5
[2021-04-25 13:56] VITALS: BP 165/116; O2SAT 99
== END 2021-04-25 13:21 | disposition short-term general hospital (02) ==
LOC: ER 11:04
DX: I61.0 Nontraumatic intracerebral hemorrhage in hemisphere, subcortical (principal); R29.737 NIHSS score 37; I10 Essential (primary) hypertension; Z86.73 Personal history of transient ischemic attack (TIA), and cerebral infarction without residual deficits
CPT/HCPCS: 85025; 80048; 36415; 85610; 85730; 70450; 71045; 31500; 51702; 99291; J0330 ×2; J2704 ×2; J1953

== ENCOUNTER 2021-10-02 13:03 | Emergency (ER) | payer BC ==
--- OUTSIDE RECORDS SUMMARY | 2021-10-02 13:06 | XMS REPORT | Continuity of Care Document ---
:1970 Author Organization [facility] t Address [address] [place] [address] Care Team Providers Name Role Phone Jessica Dean Attending Clinician Unavailable TIGIST Attending Clinician Unavailable YAKOV Attending Clinician Unavailable JENNIFER Attending Clinician Unavailable Michael TOURE Attending Clinician Lab, Fam Pob I Attending Clinician Unavailable MICHAEL Attending Clinician Unavailable Doctor Unassigned, Name Attending Clinician Unavailable YAKOV Admitting Clinician Unavailable JENNIFER Admitting Clinician Unavailable Payers Payer Name Policy Type Policy Number Effective Date Expiration Date S armen [id number] PPO AND [id number] 2012 2024 00:00:00 OUT OF STATE 00:00:00 Problems This patient has no known problems. Allergies, Adverse Reactions, Alerts Allergy Allergy Status Severity Reaction(s) Onset Inactive Treating Comm ents Source Name Type Date Date Clinician NO KNOWN Drug Active Univers ALLERGIE Class ity [facility] Social History Social Habit Start Date Stop Date Quantity Comments Source [facility] to [facility] Smoking Status Start Date Stop Date Source Unknown if ever smoked [facility] Medications This patient has no known medications. Procedures This patient has no known procedures. Encounters Start End Encounter Admission Attending Care Care Encounter Source Date/Time Date/Time Type Type Clinicians Facility Department ID 2021-09-25 Outpatient Dean, STLMLC STLMLC [id number] Common 08:47:04 [facility] 2021-09-24 Outpatient Dean, STLMLC STLMLC [id number] Common 14:15:03 [facility] 2021-09-16 Outpatient [facility] [id number] [place] 10:37:[id number] [place] [address] 2021-09-05 Outpatient [facility] [id number] [place] 13:31:[id number] [place] [address] 2021-09-04 Outpatient ABDELMELEK, [facility] [id number] [id number] [place] 11:21:34 NIKANEW [facility] [id number] [place] [address] 2021-08-25 Outpatient ABDKIRSTINMELEK, [facility] [id number] 13-2 [place] 10:51:57 [facility] [id number] [place] [address] 2021-08-20 Outpatient [facility] [id number] [place] 11:19:[id number] [place] [address] 2021-08-18 Outpatient [facility] [id number] [place] 01:04:[id number] [place] [address] 2021-06-30 Outpatient Dean, STLMLC STLMLC [id number] Common 10:36:03 [facility] 2021-06-11 Outpatient Dean, STLMLC STLMLC [id number] Common 14:30:17 [facility] 2021-06-11 Outpatient Dean, STLMLC STLMLC [id number] Common 13:54:14 [facility] 2021-06-11 Outpatient Dean, STLMLC STLMLC [id number] Common 13:44:43 [facility] [address] [facility] 2021-09-25 2021-09-25 ambulatory STLMLC STLMLC [id number] Common 00:00:00 00:00:00 [facility] 2021-09-24 2021-09-24 ambulatory STLMLC STLMLC [id number] Common 00:00:00 00:00:00 [facility] 2021-09-24 2021-09-24 ambulatory STLMLC STLMLC [id number] Common 00:00:00 00:00:00 [facility] 2021-09-19 2021-09-19 ambulatory STLMLC STLMLC [id number] Common 00:00:00 00:00:00 [facility] 2021-07-08 2021-08-06 Inpatient YAKOV, [facility] [id number] 21:33:00 11:30:00 VANDANA 2021-06-27 2021-06-27 ambulatory STLMLC STLMLC [id number] Common 00:00:00 00:00:00 [facility] 2021-04-25 2021-06-02 Inpatient [facility] [id number] 14:01:00 16:17:00 , NELY 2021-02-18 2021-02-18 Outpatient STLMLC STLMLC [id number] Common 00:00:00 00:00:00 [facility] 2021-02-12 2021-02-12 Outpatient STLMLC STLMLC [id number] Common 00:00:00 00:00:00 [facility] 2021-01-14 2021-01-14 Outpatient STLMLC STLMLC [id number] Common 00:00:00 00:00:00 [facility] 2020-04-15 2020-04-15 Telephone Michael [facility] [id number] [facility] 00:00:00 00:00:00 [employer] [id number] it y of [place] [id number] Wolfgang as Professio [phone] Ok dical nal [address] [place] 2020-04-14 2020-04-14 Laboratory Lab, Adc Fam Pob I [facility] [id number] Univers 10:39:16 10:59:16 Only Michael, [facility] [id number] ity [facility] [place] [id number] Wolfgang as Professio [phone] Ok dical nal [address] 2020-04-14 2020-04-14 Outpatient R MICHAEL [facility] [id number] Univers 10:00:00 10:00:00 DEBBI ity of [facility] 2020-04-14 2020-04-14 Letter Doctor KOKO [id number] Univers 00:00:00 00:00:00 (Out) Unassigned, GRAY [id number] ity of [place] [facility] [id number] Wolfgang as [phone] [place] [address] Branch Results This patient has no known results.
[2021-10-02 14:46] LABS: Absolute Lymphocytes (CBC) 0.8 K/uL (0.7-4.9); Hematocrit 37.7 % (39.6-49.0); Lymphocytes % 11.8 % (15.3-44.8); MPV 8.6 fL (7.6-11.3); RBC Red Blood Cell Count 4.32 M/uL (4.33-5.43)
[2021-10-02 15:23] LABS: Albumin 3.1 g/dL (3.4-5.0); Bilirubin Total 0.3 mg/dL (0.2-1.0); Protein, Total 7.3 g/dL (6.4-8.2)
[2021-10-02 16:35] LABS: Urine Blood 2+ (Negative); Urine Glucose Negative (Negative); Urine Protein 2+ (Negative)
[2021-10-02] MEDS ORDERED: CEFTRIAXONE 2000 MG/VIAL ONE (16:45)
[2021-10-02] MEDS ORDERED: NA CHLORIDE 0.9% 0 ML ONE (16:46)
[2021-10-02] MEDS ORDERED: NA CHLORIDE 0.9% 500 ML ONE (16:51)
--- NOTE | 2021-10-02 17:34 | ER ---
Nurse's Notes [facility] Name: Oliverio Masterson Age: 51 yrs Sex: Male : 1970 Arrival Date: 10/02/2021 Time: 13:13 Bed 5 Private MD: Diagnosis: UTI/ Urinary tract infection, site not specified Presentation: 10/02 13:15 Chief complaint: Patient states: Lower back pain, urinary frequency - orange in color ld1 and smells bad. Decreased appetite X 2 days. SAIRA leg pain. Fever. Coronavirus screen: At this time, the client does not indicate any symptoms associated with coronavirus-19. Ebola Screen: No symptoms or risks identified at this time. Initial Sepsis Screen: Does the patient meet any 2 criteria? No. Patient's initial sepsis screen is negative. Does the patient have a suspected source of infection? No. Patient's initial sepsis screen is negative. Risk Assessment: Do you want to hurt yourself or someone else? Patient reports no desire to harm self or others. Onset of symptoms was October 02, 2021 at 13:18. 13:15 Method Of Arrival: Wheelchair ld1 13:15 Acuity: MURPHY 3 ld1 Triage Assessment: 13:18 General: Appears in no apparent distress. comfortable, Behavior is calm, cooperative, ld1 appropriate for age. Pain: Complains of pain in low back area Pain does not radiate. Pain currently is 2 out of 10 on a pain scale. EENT: No signs and/or symptoms were reported regarding the EENT system. Neuro: Level of Consciousness is awake, alert, obeys commands, Oriented to person, place, time, situation. Respiratory: Airway is patent Respiratory effort is even, unlabored. GI: Abdomen is flat, non-distended. : Urine is orange Reports urinary frequency. Musculoskeletal: No signs and/or symptoms reported regarding the musculoskeletal system. Historical: - Allergies: 13:18 No Known Allergies; ld1 - PMHx: 13:18 High Cholesterol; Hypertension; stroke; ld1 - PSHx: 13:18 Head surgery; PEG tube; ld1 - Immunization history:: Adult Immunizations up to date, Client reports receiving the 2nd dose of the Covid vaccine. - Social history:: Smoking status: Patient denies any tobacco usage or history of. Patient/guardian denies using alcohol. Screenin:45 Abuse screen: Denies threats or abuse. Denies injuries from another. [facility] 14:45 Nutritional screening: No deficits noted. Tuberculosis screening: No symptoms or risk [facility] factors identified. Fall Risk Secondary diagnosis (15 points) CVA, IV access (20 points). Gait- Weak (10 pts.). Assessment: 15:28 General: Appears in no apparent distress. well groomed, Behavior is calm, cooperative. [facility] Pain: Pain currently is 4 out of 10 on a pain scale. Quality of pain is described as aching. Neuro: Level of Consciousness is awake, obeys commands, pt has hx of stroke in APR 2021 and reports that his mental status is normal for him. . 16:49 Reassessment: No changes from previously documented assessment. Patient and/or family 6 updated on plan of care and expected duration. Pain level reassessed. Patient is alert, oriented x 3, equal unlabored respirations, skin warm/dry/pink. Pt resting with at bedside. meds to be given for UTI and no disposition has been made about admit or d/c home. 17:55 Reassessment: No changes from previously documented assessment. Patient and/or family jh6 updated on plan of care and expected duration. Pain level reassessed. Patient is alert, oriented x 3, equal unlabored respirations, skin warm/dry/pink. 17:55 Reassessment: meds completed without reaction. verbal understanding of d/c instructions [facility] and meds. Vital Signs: 13:15 BP 96 / 73; Pulse 78; Resp 18; Temp 98.7(TE); Pulse Ox 95% on R/A; Weight 104.33 kg; ld1 Height 5 ft. 11 in. (180.34 cm); Pain 2/10; 15:39 BP 149 / 84; Pulse 71; Resp 15; Pulse Ox 91% ; jl7 16:46 BP 125 / 87; Pulse 72; Resp 17; Pulse Ox 95% ; Pain 2/10; jh6 17:02 BP 159 / 86; Pulse 76; Resp 15; Pulse Ox 98% ; jl7 17:40 BP 133 / 89; Pulse 74; Resp 17; Temp 98.5; Pulse Ox 100% on R/A; Pain 2/10; jh6 13:15 Body Mass Index 32.08 (104.33 kg, 180.34 cm) ld1 ED Course: 13:13 Patient arrived in ED. am2 13:18 Triage completed. ld1 13:18 Arm band placed on right wrist. ld1 13:19 Ede Mi PA is PHCP. [facility] 13:19 Sarath Barrera MD is Attending Physician. [facility] 14:37 Tamy Joyce, RN is Primary Nurse. 6 14:45 Placed in gown. Bed in low position. Call light in reach. Side rails up X2. Adult w/ jh6 patient. 14:45 Inserted saline lock: 20 gauge in right antecubital area, using aseptic technique. 6 Blood collected. 18:11 IV discontinued, intact, bleeding controlled, No redness/swelling at site. Pressure jh6 dressing applied. Administered Medications: 16:45 Drug: NS 0.9% 500 ml Route: IV; Rate: bolus; Site: right antecubital; 6 16:45 Drug: Rocephin (cefTRIAXone) 2 grams Route: IV; Rate: calculated rate; Site: right 6 antecubital; Outcome: 17:33 Discharge ordered by . [facility] 18:11 Discharged to home ambulatory. jh6 18:11 Condition: good 18:11 Discharge instructions given to patient, family, Instructed on discharge instructions, follow up and referral plans. Demonstrated understanding of instructions, medications, Prescriptions given X 1. 18:12 Patient left the ED. 6 Signatures: Ede Mi PA PA jmm Leal, Jahala, RN RN jl7 Angelina Andres am2 Zaynab Garcia RN RN ld1 Tamy Joyce, RN RN jh6 Corrections: (The following items were deleted from the chart) 15:40 15:28 General: Appears in no apparent distress. well groomed, Behavior is calm, jh6 cooperative, 6
--- NOTE | 2021-10-02 17:35 | EDPHYS ---
Physician Documentation [facility] Name: Oliverio Masterson Age: 51 yrs Sex: Male : 1970 Arrival Date: 10/02/2021 Time: 13:13 Bed 5 Private MD: ED Physician Sarath Barrera HPI: 10/02 13:42 This 51 yrs old Black Male presents to ER via Wheelchair with complaints of Fever, jmm Decreased Appetite, Leg Pain, Back Pain. 13:42 The patient reports fever, not measured (subjective). Onset: The symptoms/episode jmm began/occurred gradually, 1 week(s) ago. Modifying factors: there are no obvious modifying factors. Associated signs and symptoms: Pertinent negatives: abdominal pain. Is a 51-year-old male with history of CVA, hyperlipidemia, hypertension the presents emerged department with complaints of dysuria, back pain, body aches began approximately week ago worsening over the past few days. Denies vomiting.. Historical: - Allergies: 13:18 No Known Allergies; ld1 - PMHx: 13:18 High Cholesterol; Hypertension; stroke; ld1 - PSHx: 13:18 Head surgery; PEG tube; ld1 - Immunization history:: Adult Immunizations up to date, Client reports receiving the 2nd dose of the Covid vaccine. - Social history:: Smoking status: Patient denies any tobacco usage or history of. Patient/guardian denies using alcohol. ROS: 13:42 Cardiovascular: Negative for chest pain, palpitations, and edema, Respiratory: Negative jmm for shortness of breath, cough, wheezing, and pleuritic chest pain, Abdomen/GI: Negative for abdominal pain, nausea, vomiting, diarrhea, and constipation. 13:42 Constitutional: Positive for body aches. 13:42 Back: Positive for pain with movement. 13:42 All other systems are negative. Exam: 13:42 Constitutional: This is a well developed, well nourished patient who is awake, alert, jmm and in no acute distress. Head/Face: atraumatic. Eyes: EOMI, no conjunctival erythema appreciated ENT: Moist Mucus Membranes Neck: Trachea midline, Supple Chest/axilla: Normal chest wall appearance and motion. Cardiovascular: Regular rate and rhythm. No edema appreciated Respiratory: Normal respirations, no respiratory distress appreciated Abdomen/GI: Non distended, soft Back: Normal ROM Skin: General appearance color normal 13:42 Neuro: Orientation: is normal. 13:42 Psych: Behavior/mood is pleasant, cooperative. Vital Signs: 13:15 BP 96 / 73; Pulse 78; Resp 18; Temp 98.7(TE); Pulse Ox 95% on R/A; Weight 104.33 kg; ld1 Height 5 ft. 11 in. (180.34 cm); Pain 2/10; 15:39 BP 149 / 84; Pulse 71; Resp 15; Pulse Ox 91% ; jl7 16:46 BP 125 / 87; Pulse 72; Resp 17; Pulse Ox 95% ; Pain 2/10; jh6 17:02 BP 159 / 86; Pulse 76; Resp 15; Pulse Ox 98% ; jl7 17:40 BP 133 / 89; Pulse 74; Resp 17; Temp 98.5; Pulse Ox 100% on R/A; Pain 2/10; jh6 13:15 Body Mass Index 32.08 (104.33 kg, 180.34 cm) ld1 MDM: 13:42 Patient medically screened. angel 17:32 Data reviewed: vital signs, nurses notes. Counseling: I had a detailed discussion with heath the patient and/or guardian regarding: the historical points, exam findings, and any diagnostic results supporting the discharge/admit diagnosis, lab results, the need for outpatient follow up, to return to the emergency department if symptoms worsen or persist or if there are any questions or concerns that arise at home. ED course: Patient is alert nontoxic appearance NAD. Advised follow-up PCP and otherwise given strict return precautions. Patient understood agrees plan of care.. 10/02 13:48 Order name: CBC with Diff; Complete Time: 14:57 [facility] 10/02 13:48 Order name: CMP; Complete Time: 15:45 [facility] 10/02 13:48 Order name: Lipase; Complete Time: 15:45 [facility] 10/02 13:49 Order name: Blood Culture Adult (2) [facility] 10/02 13:49 Order name: Urine Culture [facility] 10/02 13:50 Order name: Lactate; Complete Time: 15:45 [facility] 10/02 13:48 Order name: IV Saline Lock; Complete Time: 15:09 [facility] 10/02 13:50 Order name: Procalcitonin; Complete Time: 15:45 [facility] 10/02 13:52 Order name: SARS-COV-2 RT PCR (Document "Date of Onset" if Symptomatic); Complete Time: [facility] 15:45 10/02 13:53 Order name: Influenza Screen (a \\T\\ B); Complete Time: 15:45 [facility] 10/02 16:35 Order name: Urine Dipstick-Ancillary; Complete Time: 16:37 [facility] 10/02 16:41 Order name: Urine Dipstick-Ancillary [facility] 10/02 13:48 Order name: Labs collected and sent; Complete Time: 15:09 [facility] Administered Medications: 16:45 Drug: NS 0.9% 500 ml Route: IV; Rate: bolus; Site: right antecubital; [facility] 16:45 Drug: Rocephin (cefTRIAXone) 2 grams Route: IV; Rate: calculated rate; Site: right [facility] antecubital; Disposition Summary: 10/02/21 17:33 Discharge Ordered Location: Home [facility] Condition: Stable [facility] Diagnosis - UTI/ Urinary tract infection, site not specified [facility] Followup: [facility] - With: Private Physician - When: 2 - 3 days - Reason: Recheck today's complaints, Continuance of care, Re-evaluation by your physician Discharge Instructions: - Discharge Summary Sheet [facility] - Urinary Tract Infection, Adult [facility] Forms: - Medication Reconciliation Form [facility] - Thank You Letter [facility] - Antibiotic Education [facility] - Prescription Opioid Use [facility] Prescriptions: - cefpodoxime 200 mg Oral Tablet - take 1 tablet by ORAL route every 12 hours for 10 days with food; 20 tablet; [facility] Refills: 0, Product Selection Permitted Signatures: Dispatcher [employer] [facility] Sarath Barrera MD MD cha Mickail, Joel, PA PA [facility] Zaynab Garcia, RN RN ld1 Tamy Joyce RN RN jh6
[2021-10-02 18:33] VITALS: BP 133/89; TEMP 98.5; O2SAT 100
== END 2021-10-02 18:12 | disposition home or self-care (01) ==
LOC: ER 13:03
DX: N39.0 Urinary tract infection, site not specified (principal); I10 Essential (primary) hypertension; Z86.73 Personal history of transient ischemic attack (TIA), and cerebral infarction without residual deficits; Z20.822 Contact with and (suspected) exposure to COVID-19
CPT/HCPCS: 87040; 87088; 85025; 87086; 36415; 83605; 87077; 87186; 81003; 83690; 80053; 84145; 87804 ×2; 96374; 99284; U0003; J7040; J0696

== ENCOUNTER 2024-01-05 11:19 | Emergency (ER) | payer OTHER ==
--- OUTSIDE RECORDS SUMMARY | 2024-01-05 11:22 | XMS REPORT | Continuity of Care Document ---
Author Name Unknown Address [address] [facility] [address] [place] [address] [facility] thconnect Address [address] [facility] [address] [place] [address] Care Team Providers Care Fight Manager Name Role Phone Soledad Escamilla Attending Clinician Unavail able Lucho Dean Attending Clinician Unavailable MIRTA ESCOTO Attending Clinician Unavaila VANDANA Das Attending Clinician Unavailable NELY RODRIGUEZ Attending Clinician Unavail able Debbi Escobar Attending Clinician Lab, Ad[facility] Pob I Attending Clinician Unavailab DEBBI Cobb Attending Clinician Unavailable Doctor Unassigned, [place] Attending Clinician U wendieailVANDANA Slater Admitting Clinician Unavailable NELY RODRIGUEZ Admitting Clinician Unavail able Payers Payer Name Policy Type Policy Number Effective Date Expirati on Date Source [id number] PPO AND OUT OF STATE [id number] 2012 00:00:00 2024 00:00:00 [place] [address] [id number] 2021 00:00:00 [facility] Problems Condition Name Condition Details Condition Category Status Onset Date Resolution Date Last Treatment Date Treating Clinician Comments Source [id number] Memory change Problem [facility] 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) Problem [facility] [id number] Essential (primary) hypertensi on Problem [facility] [id number] Mixed hyperlipid emia Problem [facility] [id number] Stage 3a chronic kidney disease Problem [facility] [id number] Erectile dysfunctio n, unspecifie d erectile dysfunctio n type Problem [facility] Dysphagia as late effect of cerebrovas cular accident (CVA) Dysphagia as late effect of cerebrovas cular accident (CVA) Problem [facility] Vascular dementia Vascular dementia Problem [facility] [id number] Gait abnormalit y Problem [facility] [id number] Presence of externally removable percutaneo us endoscopic gastrostom y (PEG) tube Problem [facility] [id number] Urinary incontinen ce, unspecifie d type Problem [facility] [id number] Insomnia due to medical condition Problem [facility] [id number] Hydrocepha rey, acquired Problem [facility] [id number] FRANCOIS (generaliz ed anxiety disorder) Problem [facility] [id number] Status post insertion of percutaneo us endoscopic gastrostom y (PEG) tube Problem [facility] [id number] Dysarthria as late effect of cerebrovas cular accident (CVA) Problem [facility] 311156747 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 Smoking Status Start Date Stop Date Source Unknown if ever smoked Unive [facility] Never Smoker [facility] Medications Ordered Medication Name Filled Medication Name Start Date Stop Date Current Medication? Ordering Clinician Indication Dosage Frequency Signature (SIG) Comments Components Source Potassium Chloride ER 10 MEQ Potassium Chloride ER 10 MEQ 08-11 00:00: 00 No 1{table t_with_ food} QD Potassium Chloride ER 10 MEQ traZODone HCl 50 MG traZODone HCl 50 MG No 1{table t_at_be dtime_a s_neede d} QD traZODone HCl 50 MG Escitalopra m Oxalate 10 MG Escitalopra m Oxalate 10 MG No 1{table t} QD Escitalopr am Oxalate 10 MG amLODIPine Besylate 10 MG amLODIPine Besylate 10 MG No 1{table t} QD amLODIPine Besylate 10 MG Acetaminoph en 500 MG Acetaminoph en 500 MG No 1{table t_as_ne eded} QID Acetaminop hen 500 MG Atorvastati n Calcium 20 MG Atorvastati n Calcium 20 MG No QD Atorvastat in Calcium 20 MG Gabapentin 100 MG Gabapentin 100 MG No 1{capsu le} QD Gabapentin 100 MG Carvedilol 25 MG Carvedilol 25 MG No 1{table t_with_ food} BID Carvedilol 25 MG Losartan Potassium 50 MG Losartan Potassium 50 MG No 1{table t} QD Losartan Potassium 50 MG Immunizations Ordered Immunization Name Filled Immunization Name Date Status Comments Source Afluria Afluria 2021-02-12 10:25:00 Completed [facility] Afluria Afluria 2021-02-12 10:25:00 Completed [facility] Afluria Afluria 2021-02-12 10:25:00 Completed [facility] Afluria Afluria 2021-02-12 10:25:00 Completed [facility] Afluria Afluria 2021-02-12 10:25:00 Completed [facility] Afluria Afluria 2021-02-12 10:25:00 Completed [facility] Afluria Afluria 2021-02-12 10:25:00 Completed [facility] Afluria Afluria 2021-02-12 10:25:00 Completed [facility] Afluria Afluria 2021-02-12 10:25:00 Completed [facility] Afluria Afluria 2021-02-12 10:25:00 Completed [facility] Afluria Afluria 2021-02-12 10:25:00 Completed [facility] Afluria Afluria 2021-02-12 10:25:00 Completed [facility] Afluria Afluria 2021-02-12 10:25:00 Completed [facility] Afluria Afluria 2021-02-12 10:25:00 Completed [facility] Afluria Afluria 2021-02-12 10:25:00 Completed [facility] Afluria Afluria 2021-02-12 10:25:00 Completed [facility] Afluria Afluria 2021-02-12 10:25:00 Completed [facility] Afluria Afluria 2021-02-12 10:25:00 Completed [facility] Afluria Afluria Unknown Completed [facility] Afluria Afluria Unknown Completed [facility] Afluria Afluria Unknown Completed [facility] Afluria Afluria Unknown Completed [facility] Afluria Afluria Unknown Completed [facility] Afluria [facility]fluria Unknown Completed [facility] Afluria [facility]fluria Unknown Completed [facility] Afluria Afluria Unknown Completed [facility] Afluria Afluria Unknown Completed [facility] Afluria Afluria Unknown Completed [facility] Afluria Afluria Unknown Completed [facility] Vital Signs Vital Name Observation Time Observation Value Comments S armen height 2023-12-30 15:00:00 69 [in_i] Commo n [facility] weight 2023-12-30 15:00:00 174.2 [lb_av] Co mmon [facility] temperature 2023-12-30 15:00:00 97.8 [degF] Com [facility] bmi 2023-12-30 15:00:00 25.72 kg/m2 Comm on [facility] oximetry 2023-12-30 15:00:00 [facility]-30 15:00:00 18 /min [facility] blood pressure systolic 2023-12-30 15:00:00 110 mm[Hg] [facility] blood pressure diastolic 2023-12-30 15:00:00 80 mm[Hg] [facility] height 2023-03-15 11:30:00 71 [in_i] Commo n [facility] weight 2023-03-15 11:30:00 186 [lb_av] Comm on [facility] temperature 2023-03-15 11:30:00 97.7 [degF] Com [facility] bmi 2023-03-15 11:30:00 25.94 kg/m2 Comm on [facility] blood pressure systolic 2023-03-15 11:30:00 124 mm[Hg] [facility] blood pressure diastolic 2023-03-15 11:30:00 81 mm[Hg] [facility] height 2022-08-11 16:10:00 71 [in_i] Commo n [facility] weight 2022-08-11 16:10:00 180 [lb_av] Comm on [facility] temperature 2022-08-11 16:10:00 97.7 [degF] Com [facility] bmi 2022-08-11 16:10:00 25.1 kg/m2 Commo n [facility] blood pressure systolic 2022-08-11 16:10:00 137 mm[Hg] [facility] diastolic 2022-08-11 16:10:00 87 mm[Hg] [facility] height 2022-01-21 11:00:00 71 [in_i] Commo n [facility] weight 2022-01-21 11:00:00 185.3 [lb_av] Co [facility] temperature 2022-01-21 11:00:00 97.8 [degF] Com [facility] bmi 2022-01-21 11:00:00 25.84 kg/m2 Comm on [facility] oximetry 2022-01-21 11:00:00 98 % Commo n [facility] respiratory rate 2022-01-21 11:00:00 18 /min [facility] blood pressure systolic 2022-01-21 11:00:00 129 mm[Hg] [facility] blood pressure diastolic 2022-01-21 11:00:00 77 mm[Hg] [facility] height 2021-09-24 13:20:00 71 [in_i] Commo n [facility] weight 2021-09-24 13:20:00 198.0 [lb_av] Co on [facility] temperature 2021-09-24 13:20:00 98.1 [degF] Com [facility] bmi 2021-09-24 13:20:00 27.61 kg/m2 Comm on [facility] oximetry 2021-09-24 13:20:00 98 % Commo n [facility] respiratory rate 2021-09-24 13:20:00 18 /min [facility] blood pressure systolic 2021-09-24 13:20:00 132 mm[Hg] [facility] blood pressure diastolic 2021-09-24 13:20:00 70 mm[Hg] [facility] Encounters Start Date/Time End Date/Time Encounter Type Admission Type Attending [facility] Care Facility Care Department Encounter ID Source 2023-12-28 11:49:00 Outpatient Soledad Escamilla [facility] ST[facility] [id number] [facility] 2023-12-13 16:27:00 Outpatient Soledad Escamilla [facility] ST[facility] [id number] [facility] 2023-12-09 11:48:00 Outpatient Dean, Lucho [facility] ST[facility] [id number] [facility] 2022-08-07 11:05:01 Outpatient Dean, Lucho ST[facility] STL[facility]C [id number] [facility] 2022-04-22 13:56:02 Outpatient Dean, Lucho ST[facility] STL[facility]C [id number] [facility] 2022-03-05 09:54:01 Outpatient Dean, Lucho STL[facility] STL[facility]C [id number] [facility] 2022-01-27 11:24:02 Outpatient Dean, Lucho ST[facility] STL[facility]C [id number] [facility] 2022-01-21 13:19:01 Outpatient Dean, Lucho ST[facility] STL[facility]C [id number] [facility] 2021-09-25 08:47:04 Outpatient Dean, Lucho ST[facility] STL[facility]C [id number] [facility] 2021-09-24 14:15:03 Outpatient Dean, Lucho ST[facility] STL[facility]C [id number] [facility] 2021-09-16 10:37:22 Outpatient [facility] [id number] [facility] 2021-09-05 13:31:48 Outpatient [facility] [id number] [facility] 2021-09-04 11:21:34 Outpatient MIRTA ESCOTO [facility] [id number] [facility] 2021-08-25 10:51:57 Outpatient MIRTA ESCOTO [facility] [id number] [facility] 2021-08-20 11:19:26 Outpatient [facility] [id number] [facility] 2021-08-18 01:04:27 Outpatient [facility] [id number] [facility] 2021-06-30 10:36:03 Outpatient DeanLucho michaels [facility] STLC [id number] [facility] 2021-06-11 14:30:17 Outpatient DeanMukesh michaelsh ST[facility] STLMLC [id number] [facility] 2021-06-11 13:54:14 Outpatient DeanLucho michaels [facility] ST[facility] [id number] [facility] 2021-06-11 13:44:43 Outpatient DeanMukesh michaelsh [facility] STLC [id number] [facility] 2023-12-31 00:00:00 2023-12-31 00:00:00 (TEL) STLMLC STLMLC [id number] [facility] 2023-12-30 00:00:00 2023-12-30 00:00:00 OFFICE VISIT NEW PT LEVEL 4 STLMLC STLMLC [id number] [facility] 2023-12-30 00:00:00 2023-12-30 00:00:00 INIT ANNUAL [facility] WELLNESS VISIT STLMLC STLMLC [id number] [facility] 2023-12-30 00:00:00 2023-12-30 00:00:00 (TEL) STLMLC STLMLC [id number] [facility] 2023-12-29 00:00:00 2023-12-29 00:00:00 (TEL) STLMLC STLMLC [id number] [facility] 2023-12-09 00:00:00 2023-12-09 00:00:00 (TEL) STLMLC STLMLC [id number] [facility] 2023-03-15 00:00:00 2023-03-15 00:00:00 OFFICE VISIT ESTAB PT LEVEL 3 STLMLC STLMLC [id number] [facility] 2023-03-10 00:00:00 2023-03-10 00:00:00 (TEL) STLMLC STLMLC [id number] [facility] 2023-02-19 00:00:00 2023-02-19 00:00:00 (TEL) STLMLC STLMLC [id number] [facility] 2022-12-16 00:00:00 2022-12-16 00:00:00 (TEL) STLMLC STLMLC [id number] [facility] 2022-11-23 00:00:00 2022-11-23 00:00:00 (TEL) STLMLC STLMLC [id number] [facility] 2022-11-16 00:00:00 2022-11-16 00:00:00 (TEL) STLMLC STLMLC [id number] [facility] 2022-09-08 00:00:00 2022-09-08 00:00:00 (TEL) STLMLC STLMLC [id number] [facility] 2022-08-13 00:00:00 2022-08-13 00:00:00 (TEL) STLMLC STLMLC [id number] [facility] 2022-08-11 00:00:00 2022-08-11 00:00:00 OFFICE VISIT ESTAB PT LEVEL 3 STLMLC STLMLC [id number] [facility] 2022-08-07 00:00:00 2022-08-07 00:00:00 (TEL) STLMLC STLMLC [id number] [facility] 2022-05-06 00:00:00 2022-05-06 00:00:00 (TEL) STLMLC STLMLC [id number] [facility] 2022-04-22 00:00:00 2022-04-22 00:00:00 (TEL) STLMLC STLMLC [id number] [facility] 2022-02-10 00:00:00 2022-02-10 00:00:00 (TEL) STLMLC STLMLC [id number] [facility] 2022-01-21 00:00:00 2022-01-21 00:00:00 (ESTPT) Establishe d Patient STLMLC STLMLC [id number] [facility] 2022-01-05 00:00:00 2022-01-05 00:00:00 (TEL) STLMLC STLMLC [id number] [facility] 2021-12-23 00:00:00 2021-12-23 00:00:00 (TEL) STLMLC STLMLC [id number] [facility] 2021-11-13 00:00:00 2021-11-13 00:00:00 (TEL) STLMLC STLMLC [id number] [facility] 2021-10-17 00:00:00 2021-10-17 00:00:00 (TEL) STLMLC STLMLC [id number] [facility] 2021-10-14 00:00:00 2021-10-14 00:00:00 (TEL) STLMLC STLMLC [id number] [facility] 2021-10-02 00:00:00 2021-10-02 00:00:00 (TEL) STLMLC STLMLC [id number] [facility] 2021-09-25 00:00:00 2021-09-25 00:00:00 (TEL) STLMLC STLMLC [id number] [facility] 2021-09-24 00:00:00 2021-09-24 00:00:00 OFFICE VISIT ESTAB PT LEVEL 5 STLMLC STLMLC [id number] [facility] 2021-09-24 00:00:00 2021-09-24 00:00:00 (TEL) STLMLC STLMLC [id number] [facility] 2021-09-19 00:00:00 2021-09-19 00:00:00 (TEL) STLMLC STLMLC [id number] [facility] 2021-07-08 21:33:00 2021-08-06 11:30:00 Inpatient VANDANA NAGY [facility] [id number] [facility] 2021-06-27 00:00:00 2021-06-27 00:00:00 (TEL) STLMLC STLMLC [id number] [facility] 2021-04-25 14:01:00 2021-06-02 16:17:00 Inpatient NELY RODRIGUEZ [facility] [id number] [facility] 2021-03-21 00:00:00 2021-03-21 00:00:00 (TEL) STLMLC STLMLC [id number] [facility] 2021-02-25 00:00:00 2021-02-25 00:00:00 (TEL) STLMLC STLMLC [id number] [facility] 2021-02-18 00:00:00 2021-02-18 00:00:00 Outpatient [facility]LMLC STLMLC [id number] [facility] 2021-02-12 00:00:00 2021-02-12 00:00:00 Outpatient STLMLC STL[facility]C [id number] [facility] 2021-01-14 00:00:00 2021-01-14 00:00:00 Outpatient STLMLC STLMLC [id number] [facility] 2020-04-15 00:00:00 2020-04-15 00:00:00 Telephone Debbi Rodriguez [facility] One [id number] [facility] 2020-04-14 10:39:16 2020-04-14 10:59:16 Laboratory Only Lab, Ad[facility] [id number] [id number] [facility] 2020-04-14 10:00:00 2020-04-14 10:00:00 Outpatient R DEBBI RODRIGUEZ [facility] [id number] [facility] 2020-04-14 00:00:00 2020-04-14 00:00:00 Letter (Out) Doctor Unassigned, [place] [facility] [id number] [facility] Results Test Description Test Time Test Comments Results Result Co mments Source LIPID PANEL WITH REFLEX DIRECT [id number] 00:00:00* Test Item Value Reference Range Interpretation Comme nts CALC LDL CHOL (test code = 26105-9) 77 MG/DL See_Comment [Automated [employer]] The system which generated this result transmitted reference range: <100 MG/DL. The reference range was not used to interpret this result as normal/abnormal. CHOLESTEROL (test code = 2093-3) 138 MG/DL See_Comment [Automated [employer]] The system which generated this result transmitted reference range: <200 MG/DL. The reference range was not used to interpret this result as normal/abnormal. HDL CHOLESTEROL (test code = 2085-9) 46 MG/DL See_Comment [Automated [employer]] The system which generated this result transmitted reference range: >39 MG/DL. The reference range was not used to interpret this result as normal/abnormal. RISK RATIO LDL/HDL (test code = 89576-5) 1.67 RATIO See_Comment [Automated message] The system which generated this result transmitted reference range: <3.55 RATIO. The reference range was not used to interpret this result as normal/abnormal. TRIGLYCERIDES (test code = 2571-8) 73 MG/DL See_Comment [Automated messa ge] The system which generated this result transmitted reference range: <150 MG/DL. The reference range was not used to interpret this result as normal/abnormal. COMPREHENSIVE METABOLIC [id number] 00:00:00* Test Item Value Reference Range Interpretation Comme nts ALBUMIN (test code = 1751-7) 4.4 G/DL See_Comment [Automated messa ge] The system which generated this result transmitted reference range: 3.5-5.2 G/DL. The reference range was not used to interpret this result as normal/abnormal. ALKALINE PHOSPHATASE (test code = 6768-6) 70 U/L See_Comment [Automated message] The system which generated this result transmitted reference range: 40-121 U/L. The reference range was not used to interpret this result as normal/abnormal. BILIRUBIN, TOTAL (test code = 1975-2) 0.4 MG/DL See_Comment [Automated message] The system which generated this result transmitted reference range: <=1.2 MG/DL. The reference range was not used to interpret this result as normal/abnormal. BUN (test code = 3094-0) 15 MG/DL See_Comment [Automated messa ge] The system which generated this result transmitted reference range: 6-20 MG/DL. The reference range was not used to interpret this result as normal/abnormal. CALCIUM (test code = 06131-5) 9.9 MG/DL See_Comment [Automated messa ge] The system which generated this result transmitted reference range: 8.5-10.5 MG/DL. The reference range was not used to interpret this result as normal/abnormal. CALC A/G RATIO (test code = 1759-0) 1.4 RATIO See_Comment [Automated messa ge] The system which generated this result transmitted reference range: 1.0-2.6 RATIO. The reference range was not used to interpret this result as normal/abnormal. CALC BUN/CREAT (test code = 3097-3) 12 RATIO See_Comment [Automated messa ge] The system which generated this result transmitted reference range: 6-28 RATIO. The reference range was not used to interpret this result as normal/abnormal. CALC GLOBULIN (test code = 35732-4) 3.1 G/DL See_Comment [Automated messa ge] The system which generated this result transmitted reference range: 1.9-3.7 G/DL. The reference range was not used to interpret this result as normal/abnormal. CARBON DIOXIDE (test code = 1963-8) 34 MEQ/L See_Comment H [Automated messa ge] The system which generated this result transmitted reference range: 19-31 MEQ/L. The reference range was not used to interpret this result as normal/abnormal. CHLORIDE (test code = 5-0) 96 MEQ/L See_Comment [Automated messa ge] The system which generated this result transmitted reference range: 95-107 MEQ/L. The reference range was not used to interpret this result as normal/abnormal. CREATININE (test code = 2160-0) 1.27 MG/DL See_Comment [Automated messa ge] The system which generated this result transmitted reference range: 0.80-1.40 MG/DL. The reference range was not used to interpret this result as normal/abnormal. eGFR (2020 CKD-EPI) (test code = 95752-4) 68 ML/MIN/1.73 See_Comment [Automated messa ge] The system which generated this result transmitted reference range: >60 ML/MIN/1.73. The reference range was not used to interpret this result as normal/abnormal. GLUCOSE (test code = 1558-6) 129 MG/DL See_Comment H [Automated messa ge] The system which generated this result transmitted reference range: 70-99 MG/DL. The reference range was not used to interpret this result as normal/abnormal. POTASSIUM (test code = 2823-3) 2.4 MEQ/L See_Comment LL [Automated messa ge] The system which generated this result transmitted reference range: 3.5-5.4 MEQ/L. The reference range was not used to interpret this result as normal/abnormal. PROTEIN, TOTAL (test code = 2885-2) 7.5 G/DL See_Comment [Automated messa ge] The system which generated this result transmitted reference range: 6.1-8.3 G/DL. The reference range was not used to interpret this result as normal/abnormal. AST (test code = 1920-8) 12 U/L See_Comment [Automated messa ge] The system which generated this result transmitted reference range: 9-50 U/L. The reference range was not used to interpret this result as normal/abnormal. ALT (test code = 1742-6) 9 U/L See_Comment [Automated [employer] ge] The system which generated this result transmitted reference range: 5-50 U/L. The reference range was not used to interpret this result as normal/abnormal. SODIUM (test code = 2951-2) 143 MEQ/L See_Comment [Automated [employer] ge] The system which generated this result transmitted reference range: 133-146 MEQ/L. The reference range was not used to interpret this result as normal/abnormal.
[2024-01-05 12:38] LABS: Absolute Basophils 0.1 K/uL (0-0.5); Absolute Eosinophils 0.2 K/uL (0-0.5); Absolute Lymphocytes (CBC) 1.2 K/uL (0.7-4.9); Absolute Monocytes 0.4 K/uL (0.1-1.3); Absolute Neutrophil 4.4 K/uL (1.8-8.0); Basophils % 1.2 % (0-1.3); Eosinophils % 3.5 % (0-4.4); Hematocrit 39.7 % (39.6-49.0); Hemoglobin 13.1 g/dL (13.6-17.9); Lymphocytes % 18.4 % (15.3-44.8); MCH 29.2 pg (27.0-35.0); MCV 88.7 fL (80-100); MPV 9.6 fL (7.6-11.3); Monocytes % 6.6 % (3.3-12.3); Neutrophils % 70.3 % (41.7-73.7); Platelets 181 thou/uL (152-406); RBC Red Blood Cell Count 4.48 M/uL (4.33-5.43); Red Cell Distribution Width 15.2 % (12.1-15.2)
[2024-01-05 13:00] LABS: Anion Gap 6.2 mEq/L (5.0-15.0)
[2024-01-05 13:03] LABS: Potassium 2.2 mEq/L (3.5-5.1)
--- NOTE | 2024-01-05 15:10 | ER ---
Nurse's Notes [facility] Name: Oliverio Masterson Age: 53 yrs Sex: Male : 1970 Arrival Date: 01/05/2024 Time: 11:19 Bed IW1 Private MD: Diagnosis: Hypokalemia Presentation: 01/04 11:37 Chief complaint: Spouse and/or significant other states: Had labs done at [facility] yesterday, office called today and told them to come to ED because "his potassium was dangerously low", states it was 2.0. Coronavirus screen: Vaccine status: Patient reports receiving the 2nd dose of the covid vaccine. Ebola Screen: No symptoms or risks identified at this time. Initial Sepsis Screen: Does the patient meet any 2 criteria? No. Patient's initial sepsis screen is negative. Does the patient have a suspected source of infection? No. Patient's initial sepsis screen is negative. Risk Assessment: Do you want to hurt yourself or someone else? Patient reports no desire to harm self or others. Onset of symptoms was January 05, 2024. 11:37 Method Of Arrival: Ambulatory ph 11:37 Acuity: MURPHY 3 ph Triage Assessment: 11:42 General: Appears in no apparent distress. Behavior is calm, cooperative. Pain: Denies ph pain. Neuro: Level of Consciousness is awake, alert, obeys commands, Oriented to person, place, time, situation. Cardiovascular: Reports fatigue, Denies chest pain. Derm: Skin is pink, warm \\T\\ dry. Historical: - Allergies: 11:42 No Known Allergies; ph - PMHx: 11:42 High Cholesterol; Hypertension; stroke; ph - PSHx: 11:42 head surgery; PEG tube; ph Vital Signs: 11:37 BP 106 / 73; Pulse 58; Resp 18; Temp 97.6; Pulse Ox 98% on R/A; Weight 71.67 kg; Height ph 5 ft. 11 in. ; 11:37 Body Mass Index 22.04 (71.67 kg, 180.34 cm) ph ED Course: 11:22 Patient arrived in ED. mg5 11:23 Chase Booker MD is Attending Physician. ec2 11:42 Triage completed. ph 11:43 Arm band placed on Patient placed in waiting room, Patient notified of wait time. ph 12:30 BMP Sent. bc6 12:30 CBC with Diff Sent. bc6 12:50 Patient's name was called from ER lobby. No response. ph 13:03 Notified ED physician of a critical lab result(s). potassium of 2.2. ap3 13:05 Patient's name was called from ER lobby. No response. ph Administered Medications: No medications were administered Outcome: 15:14 Eloped from waiting room, after seeing physician Time discovered patient gone: December ph 2023 at 13:05 15:14 Patient left the ED. ph Signatures: Chrissie Sawyer, RN RN ph Angelina Sy RN RN ap3 Meli Duckworth bc6 Jamee Ray mg5 Chase Booker MD MD ec2
--- NOTE | 2024-01-05 15:10 | EDPHYS ---
Physician Documentation [facility] Name: Oliverio Masterson Age: 53 yrs Sex: Male : 1970 Arrival Date: 01/05/2024 Time: 11:19 Bed IW1 Private MD: ED Physician Chase Booker HPI: 01/04 11:45 This 53 yrs old Black Male presents to ER via Ambulatory with complaints of Abnormal ec2 Lab Results. 11:45 Patient arrives today due to concern for hypokalemia. Patient reportedly had outpatient ec2 labs drawn recently and was told that he has low potassium and to come to the emergency department. No specific complaints. Historical: - Allergies: 11:42 No Known Allergies; ph - PMHx: 11:42 High Cholesterol; Hypertension; stroke; ph - PSHx: 11:42 head surgery; PEG tube; ph ROS: 11:46 Constitutional: as per hpi ec2 Exam: 11:46 Constitutional: GEN: NAD Head: atraumatic Eyes: EOMI Ears: External ears are ec2 normal. CV: regular rate LUNGS: no respiratory distress ABD: non-distended SKIN: no evidence of rashes MSK: no evidence of trauma Vital Signs: 11:37 BP 106 / 73; Pulse 58; Resp 18; Temp 97.6; Pulse Ox 98% on R/A; Weight 71.67 kg; Height ph 5 ft. 11 in. ; 11:37 Body Mass Index 22.04 (71.67 kg, 180.34 cm) ph MDM: 11:37 Patient medically screened. ec2 11:46 Data reviewed: vital signs. ED course: Patient arrives today due to concern for ec2 hyperkalemia. Examination remarkable for well-appearing nontoxic dividual is otherwise in no acute distress we will obtain repeat lab work, obtain EKG. Differential includes renal dysfunction, medication induced side effect, hypokalemia.. 15:10 ED course: Patient eloped prior to completion of services.. ec2 01/04 11:43 Order name: CBC with Diff; Complete Time: 12:44 ec2 01/04 11:43 Order name: BMP; Complete Time: 13:10 ec2 01/04 11:43 Order name: EKG - Nurse/Tech ec2 Administered Medications: No medications were administered Disposition Summary: 01/05/24 15:10 Eloped Notes: Disposition: after being seen by provider ec2 Reason: wait time ec2 Diagnosis - Hypokalemia ec2 Followup: ec2 - With: Private Physician - When: - Reason: Re-evaluation by your physician Signatures: Dispatcher Chrissie Croft RN RN Chase Duque MD MD ec2 Corrections: (The following items were deleted from the chart) 11:46 11:45 Patient arrives today due to concern for hypokalemia. Patient reportedly had ec2 outpatient labs drawn recently and was told that he has low potassium and to come to the emergency department. No specific implants. ec2
[2024-01-05 15:32] VITALS: BP 106/73; TEMP 97.6; O2SAT 98
== END 2024-01-05 15:14 | disposition left against medical advice (07) ==
LOC: ER 11:19
DX: E87.6 Hypokalemia (principal); I10 Essential (primary) hypertension
CPT/HCPCS: 36415; 80048; 85025